=== PATIENT | male | born 1955 | race Caucasian/White ===

== ENCOUNTER 2019-08-07 00:11 | Emergency (ER) | payer BC, SELFPAY ==
[2019-08-07 00:11] VITALS: BMI 30.8
--- NOTE | 2019-08-07 00:14 | ED_ITS ---
Entered by Marilu Barksdale, acting as scribe for Michael Mast MD HPI - General Adult General: Chief complaint: General Medical Stated complaint: Hypertension Time Seen by Provider: 08/07/19 00:13 Source: patient and EMS Mode of arrival: EMS History of Present Illness: HPI narrative: 64 y/o male presents to the ED with HTN. Pt states he woke up an hour ago feeling dizzy and having blurred vision. Pt states his symptoms are somewhat improved upon arrival at [facility]. complaint: HTN/dizziness Onset (ago): hour(s) (1) Severity: mild Associated symptoms: Deny chest pain, dyspnea, headache(s), nausea, rash or vomiting Review of Systems Const: Denies: fever, chills, body aches or change in appetite Eyes: Reports: blurry vision; Denies: eye discomfort ENMT: Denies: throat pain or dental pain Card: Reports: other (elevated BP); Denies: chest pain Resp: Denies: shortness of breath GI: Denies: abdominal pain, nausea, vomiting or diarrhea : Denies: painful urination Musc: Denies: neck pain or back pain Skin/Breast: Denies: rash Neuro: Reports: dizziness; Denies: headache Psych: Denies: depression Edmundo/Lymph: Denies: easy bruising All/Imm: Denies: hives PFSH ED PFSH: Statuses (acute, chronic, etc) shown below reflect problem list status as previously entered and may not be historically accurate Social History Smoking and tobacco status: former smoker Physical Exam Const: COMMON NORMALS: no apparent distress, oriented x3 and healthy appearing HENMT: COMMON NORMALS: normocephalic and head/scalp atraumatic HEAD & SCALP: normocephalic and atraumatic Eye: COMMON NORMALS: PERRL and EOMs intact bilaterally PUPIL: Yes PERRL Neck/C-Spine: COMMON NORMALS: full ROM and supple Chest: COMMONS NORMALS: inspection of chest normal and palpation of chest normal Resp: COMMON NORMALS: normal respiratory effort, no retractions, no use of accessory muscles and clear to auscultation bilaterally AUSCULTATION: clear to auscultation bilaterally Cardio: COMMON NORMALS: regular rate, regular rhythm and no murmurs RATE: regular rate RHYTHM: regular rhythm GI: COMMON NORMALS: normal to inspection, nondistended, normoactive bowel sounds, soft to palpation, non-tender and no masses PALPATION: Yes soft Extremity: COMMON NORMALS: normal to inspection and full ROM Neuro: COMMON NORMALS: oriented x3, moves all extremities and no focal motor deficits Psych: COMMON NORMALS: mental status grossly normal, thought process normal and cooperative THOUGHT PROCESS: normal thought process Skin: COMMON NORMALS: no rashes or lesions noted and no wounds GENERAL SKIN EXAM: no rashes or lesions noted Course Vital Signs: Vital signs: Vital Signs Temperature 98.6 F 08/07/19 00:18 Pulse Rate 85 08/07/19 02:09 Respiratory Rate 18 08/07/19 02:09 Blood Pressure 168/98 08/07/19 02:09 Pulse Oximetry 95 08/07/19 02:09 MDM - General Adult MDM Narrative: Medical decision making narrative: Patient presents here with high blood pressure likely causing his dizziness. Patient has no signs of a stroke exam here is benign. Patient CT head is normal. Patient blood pressures improved and will increase his lisinopril. Patient is stable for discharge and is to follow-up with his primary care doctor in 3 to 5 days and return if worsening. Lab Data: Labs: Lab Results 08/07/19 08/07/19 Range/Units 00:25 00:25 WBC 6.7 (4.0-10.0) 10^3/ uL RBC 4.76 (4.1-5.3) 10^6/u L Hgb 12.2 (11.7-16.6) g/dL Hct 37.3 L (42.0-52.0) % MCV 78.4 L (80-94) fL MCH 25.6 L (28.0-34.0) pg MCHC 32.7 (30.0-36.0) g/dL RDW 13.3 (12.1-15.1) % Plt Count 254 (130-400) 10^3/c mm MPV 10.1 (7.4-10.4) fL Neut % (Auto) 62.0 % Lymph % (Auto) 25.1 % [place] % (Auto) 9.6 % Eos % (Auto) 2.6 % Baso % (Auto) 0.5 % Neut # (Auto) 4.1 (1.8-7.7) 10^3/u L Lymph # (Auto) 1.7 (0.8-4.8) 10^3/u L [place] # (Auto) 0.6 (0.2-0.9) 10^3/u L Eos # (Auto) 0.2 (0.0-0.8) 10^3/u L Baso # (Auto) 0.0 (0.0-0.1) 10^3/u L Nucleated RBC % (a uto) 0 % Nucleated RBCs # 0.0 /100WBC Sodium 138 (136-145) mmol/L Potassium 4.6 (3.5-5.1) mmol/L Chloride 100 (98-107) mmol/L Carbon Dioxide 25 (22-29) mmol/L Anion Gap 17.6 (5-19) BUN 24 H (8-23) mg/dL Creatinine 1.0 (0.7-1.2) mg/dL GFR Calculation 75.2 L (90-130) mL/min Glucose 157 H (74-106) mg/dL Calcium 9.9 (8.5-10.5) mg/dL Total Bilirubin 0.2 (0.15-1.2) mg/dL AST 23 (0-40) U/L ALT 18 (0-41) U/L Alkaline Phosphata se 61 (40-130) IU/L Total Protein 7.5 (6.6-8.7) g/dL Albumin 4.0 (3.5-5.2) g/dL Globulin 3.5 (1.3-4.6) g/dL Imaging Data^: CT Head: Radiologist's impression: Ordering Provider/Ordering MD: Michael Mast MD Date of Service: 08/07/19 Procedure(s): CT head wo con* [id number] Accession Number(s): [id number] Report Number: [id number] PROCEDURE INFORMATION: Exam: CT Head Without Contrast Exam date and time: 08/07/2019 12:27 AM Age: 64 years old Clinical indication: Dizziness TECHNIQUE: Imaging protocol: Computed tomography of the head without contrast. Total DLP: 1309.19 mGy-cm Radiation optimization: All CT scans at this facility use at least one of these dose optimization techniques: automated exposure control; mA and/or kV adjustment per patient size (includes targeted exams where dose is matched to clinical indication); or iterative reconstruction. COMPARISON: No relevant prior studies available. FINDINGS: Brain: The brain is unremarkable. There is no mass effect or significant white matter disease. There is no acute intracranial hemorrhage. Ventricles: There is no significant ventricular dilation. The basal cisterns are unremarkable. Bones/joints: The calvarium is intact. Sinuses: The paranasal sinuses are clear. Mastoid air cells: Left mastoid effusion. No fluid in the left middle ear. Soft tissues: The visible extracranial soft tissues are unremarkable. CT/CT head wo con* [id number] IMPRESSION: 1. No acute intracranial abnormality. 2. Left mastoid effusion. EKG Data^: EKG 1: Computer generated interpretation: Head CT 08/07/19 00:18 IMPRESSION: 1. No acute intracranial abnormality. 2. Left mastoid effusion. Radiation Dose CTDIVOL = (mGy): DLP = 1309.19 (mGy-cm) Discharge Plan Discharge Patient Disposition: Home, Self-Care Clinical Impression: Hypertension Qualifiers: Hypertension type: essential hypertension Qualified Code(s): I10 - Essential (primary) hypertension Condition: Stable Prescriptions: New lisinopril 20 mg tablet 20 mg PO DAILY Qty: 30 RF: 0 Discharge Orders: Discharge Order (Routine); Ordered 08/07/19 Ordered By: Michael Mast Discharge Diet: Advance as tolerated Discharge Activity: Resume usual activity Patient Instructions: Hypertension (ED) Discharge Date/Time: 08/07/19 02:12 Coding Level of Care Code ED Senior Oracle Database Administrator for Chg Fwd Exam Problem Focused The documentation recorded by the Shamir eisenberg Ashley, accurately reflects the service I personally performed and the decisions made by Kezia arroyo Korby, MD Aug 07, 2019 00:11
[2019-08-07 00:18] VITALS: BP 250/130; PULSE 107; RESP 18; TEMP 37; O2SAT 96
--- NOTE | 2019-08-07 00:18 | CTR_ITS ---
PROCEDURE INFORMATION: Exam: CT Head Without Contrast Exam date and time: 08/07/2019 12:27 AM Age: 64 years old Clinical indication: Dizziness TECHNIQUE: Imaging protocol: Computed tomography of the head without contrast. Total DLP: 1309.19 mGy-cm Radiation optimization: All CT scans at this facility use at least one of these dose optimization techniques: automated exposure control; mA and/or kV adjustment per patient size (includes targeted exams where dose is matched to clinical indication); or iterative reconstruction. COMPARISON: No relevant prior studies available. FINDINGS: Brain: The brain is unremarkable. There is no mass effect or significant white matter disease. There is no acute intracranial hemorrhage. Ventricles: There is no significant ventricular dilation. The basal cisterns are unremarkable. Bones/joints: The calvarium is intact. Sinuses: The paranasal sinuses are clear. Mastoid air cells: Left mastoid effusion. No fluid in the left middle ear. Soft tissues: The visible extracranial soft tissues are unremarkable. CT/CT head wo con* [id number] IMPRESSION: 1. No acute intracranial abnormality. 2. Left mastoid effusion. Radiation Dose CTDIVOL = (mGy): DLP = 1309.19 (mGy-cm)
--- NOTE | 2019-08-07 00:19 | ECG_ITS ---
Measurements Intervals [place] Rate: 104 P: 39 VT: 187 QRS: 37 QRSD: 109 T: 31 QT: 334 QTc: 440 SINUS TACHYCARDIA ABNORMAL RHYTHM ECG No previous ECG available for comparison Electronically Signed On 08-07-2019 20:13:27 HEEL BLACKER by Emmanuel Inman M.D. [id number]
[2019-08-07 00:30] VITALS: BP 250/132
[2019-08-07 00:33] VITALS: BP 250/132
[2019-08-07] MEDS: cloNIDine 0.1 mg Tablet 0.2 MG PO (00:33)
[2019-08-07 00:35] LABS: Basophils % 0.5 %; Eosinophils # 0.2 10^3/uL (0.0-0.8); Eosinophils % 2.6 %; Hematocrit 37.3 % (42.0-52.0); Hemoglobin 12.2 g/dL (11.7-16.6); Lymphocytes # 1.7 10^3/uL (0.8-4.8); Lymphocytes % 25.1 %; Mean Corpuscular HGB Conc 32.7 g/dL (30.0-36.0); Mean Corpuscular Hemoglobin 25.6 pg (28.0-34.0); Mean Corpuscular Volume 78.4 fL (80-94); Mean Platelet Volume 10.1 fL (7.4-10.4); Monocytes # 0.6 10^3/uL (0.2-0.9); Monocytes % 9.6 %; Neutrophils # 4.1 10^3/uL (1.8-7.7); Nucleated Red Blood Cells % 0 %; Platelet Count 254 10^3/cmm (130-400); Red Blood Count 4.76 10^6/uL (4.1-5.3); Red Cell Distribution Width 13.3 % (12.1-15.1); White Blood Count 6.7 10^3/uL (4.0-10.0)
[2019-08-07 01:05] LABS: Alanine Aminotransferase 18 U/L (0-41); Alkaline Phosphatase 61 IU/L (40-130); Anion Gap 17.6 (5-19); Aspartate Amino Transferase 23 U/L (0-40); Blood Urea Nitrogen 24 mg/dL (8-23); Calcium 9.9 mg/dL (8.5-10.5); Carbon Dioxide 25 mmol/L (22-29); Chloride 100 mmol/L (98-107); Globulin 3.5 g/dL (1.3-4.6); Glomerular Filtration Rate 75.2 mL/min (90-130); Glucose 157 mg/dL (74-106); Potassium 4.6 mmol/L (3.5-5.1); Sodium 138 mmol/L (136-145); Total Bilirubin 0.2 mg/dL (0.15-1.2); Total Protein 7.5 g/dL (6.6-8.7)
[2019-08-07 01:39] VITALS: BP 198/112; O2SAT 96
[2019-08-07] MEDS: hyDRALAzine 20 mg/mL INJ 1 mL 10 MG IVP (01:39)
[2019-08-07 01:59] VITALS: BP 168/96; PULSE 95; RESP 18; O2SAT 95
[2019-08-07 02:09] VITALS: BP 168/98; PULSE 85; RESP 18; O2SAT 95
== END 2019-08-07 02:12 | disposition home or self-care (01) ==
PROVIDERS: Emergency Provider Emergency Medicine
DX: I10 Essential (primary) hypertension (principal); Z87.891 Personal history of nicotine dependence
CPT/HCPCS: 36415; 70450; 80053; 85025; 93005; 96374; 99282; 99284; J0360

== ENCOUNTER 2019-08-30 12:40 | Outpatient (CLI) | payer BC, SELFPAY ==
--- NOTE | 2019-08-30 12:45 | USCV_ITS ---
Camron Zuñiga Age: 64 Gender: M : 1955 Exam Date: 08/30/2019 13:04 Ordering Phys: Cristo Cook MD ([email or web address]) Technologist: Arlet Guzman Exam Location: [facility] [place] Indication: STABLE ANGINA BP: / HR: 88 Rhythm: Sinus Technical Quality: Technically difficult study MEASUREMENTS (Male / Female) Normal Values 2D ECHO LV Diastolic Diameter PLAX 4.6 cm 4.2 - 5.9 / 3.9 - 5.3 cm LV Systolic Diameter PLAX 2.7 cm IVS Diastolic Thickness 1.4 cm 0.6 - 1.0 / 0.6 - 0.9 cm IVS Systolic Thickness 2.0 cm LVPW Diastolic Thickness 0.7 cm 0.6 - 1.0 / 0.6 - 0.9 cm LVPW Systolic Thickness 1.6 cm LVOT Diameter 2.0 cm LV Ejection Fraction 2D Teich 72.4 % LV Ejection Fraction MOD 2C 77.7 % LV Ejection Fraction 2C AL 78.0 % LA Diameter 4.2 cm LA Width 2.5 cm LA Height 3.9 cm RA Width 2.6 cm RA Height 3.9 cm M-MODE LV Diastolic Diameter MM 5.7 cm 4.2 - 5.9 / 3.9 - 5.3 cm LV Systolic Diameter MM 3.7 cm LV Ejection Fraction MM Teich 62.8 % IVS Diastolic Thickness MM 0.5 cm 0.6 - 1.0 / 0.6 - 0.9 cm IVS Systolic Thickness MM 0.9 cm LVPW Diastolic Thickness MM 0.6 cm 0.6 - 1.0 / 0.6 - 0.9 cm LVPW Systolic Thickness MM 1.3 cm Aortic Annulus Diameter 3.7 cm LA Ao Ratio MM 1.1 MV E Point Septal Separation 0.4 cm DOPPLER AV Peak Velocity 110.0 cm/s LVOT Peak Velocity 100.0 cm/s AV Area Cont Eq vti 3.3 cm squared AV Area Cont Eq pk 3.0 cm squared MV Peak Velocity 100.0 cm/s MV Area PHT 4.2 cm squared Mitral E to A Ratio 0.8 MV E' Velocity 6.0 cm/s Mitral E to MV E' Ratio 13.7 Mitral E to LV E' Lateral Ratio 12.3 Mitral E to LV E' Septal Ratio 15.5 TR Peak Velocity 79.0 cm/s TR Peak Gradient 2.5 mmHg Right Atrial Pressure 3.0 mmHg Pulmonary Artery Systolic Pressu 5.5 mmHg PV Peak Velocity 103.0 cm/s RV Acceleration Time 0.1 s FINDINGS Left Ventricle Normal left ventricular size and systolic function, EF 80 %. Grade I/IV diastolic dysfunction (abnormal relaxation filling pattern), normal to mildly elevated filling pressures. Right Ventricle The right ventricle is normal in size and function. Right Atrium The right atrium is normal in size. Left Atrium The left atrium is normal in size. Mitral Valve No gross abnormalities noted Aortic Valve Thickened aortic valve. Trace aortic valve regurgitation. Tricuspid Valve Trace tricuspid valve regurgitation. Pulmonic Valve Pulmonic valve not well visualized. Pericardium Normal pericardium without effusion. Aorta Normal ascending aorta dimension. CONCLUSIONS Normal left ventricular size and systolic function, EF 80 %. Grade I/IV diastolic dysfunction (abnormal relaxation filling pattern), normal to mildly elevated filling pressures. Thickened aortic valve. Trace aortic valve regurgitation. Trace tricuspid valve regurgitation. There is no pericardial effusion. There are no intracardiac masses. Technically difficult study because of the poor ultrasonic window. Dr Cristo Cook MD FACC (Electronically Signed) Final Date: 30 August 2019 19:58 S
== END 2019-08-30 12:41 | disposition home or self-care (01) ==
LOC: US 12:58
PROVIDERS: Family Provider Family Medicine; PCP Family Medicine; Visit Provider Internal Medicine Cardiovascular Disease
DX: I20.8 Other forms of angina pectoris (principal); I08.2 Rheumatic disorders of both aortic and tricuspid valves
CPT/HCPCS: 93306

== ENCOUNTER → 2019-09-17 11:09 | Outpatient (BNVA) | payer BC, SELFPAY | PROVIDERS: Family Provider Family Medicine; PCP Family Medicine; Visit Provider Family Medicine | DX: E11.69 Type 2 diabetes mellitus with other specified complication (principal); E78.5 Hyperlipidemia, unspecified; I10 Essential (primary) hypertension | CPT/HCPCS: 80053; 80061; 83036; 85025 ==

== ENCOUNTER → 2020-02-20 13:00 | Outpatient (BNVA) | payer BC, SELFPAY | PROVIDERS: Family Provider Family Medicine; PCP Family Medicine; Visit Provider Family Medicine | DX: I10 Essential (primary) hypertension (principal); E11.9 Type 2 diabetes mellitus without complications; E78.5 Hyperlipidemia, unspecified | CPT/HCPCS: 80053; 80061; 83036; 85025 ==

== ENCOUNTER → 2020-06-03 13:09 | Outpatient (BNVA) | payer BC, MEDICARE, SELFPAY | PROVIDERS: Family Provider Family Medicine; PCP Family Medicine; Visit Provider Nurse Practitioner Family | DX: Z20.828 Contact with and (suspected) exposure to other viral communicable diseases (principal); J06.9 Acute upper respiratory infection, unspecified | CPT/HCPCS: 87635 ==

== ENCOUNTER → 2020-07-25 10:28 | Outpatient (BNVA) | payer MEDICARE, SELFPAY | PROVIDERS: Family Provider Family Medicine; PCP Family Medicine; Visit Provider Nurse Practitioner Family | DX: Z20.822 Contact with and (suspected) exposure to COVID-19 (principal); J02.9 Acute pharyngitis, unspecified | CPT/HCPCS: 87071; 87635; 87880 ==

== ENCOUNTER → 2020-09-02 13:19 | Outpatient (BNVA) | payer MEDICARE, SELFPAY | PROVIDERS: Family Provider Family Medicine; PCP Family Medicine; Visit Provider Family Medicine | DX: I10 Essential (primary) hypertension (principal); E11.9 Type 2 diabetes mellitus without complications | CPT/HCPCS: 80053; 80061; 83036; 84443 ==

== ENCOUNTER → 2020-12-30 10:20 | Outpatient (BNVA) | payer MEDICARE, SELFPAY | PROVIDERS: Family Provider Family Medicine; PCP Family Medicine; Visit Provider Family Medicine | DX: E11.69 Type 2 diabetes mellitus with other specified complication (principal); E78.5 Hyperlipidemia, unspecified; I10 Essential (primary) hypertension; W57.XXXA Bitten or stung by nonvenomous insect and other nonvenomous arthropods, initial encounter | CPT/HCPCS: 80053; 80061; 83036; 84443; 85025; 86618; 86666; 86757 ==

== ENCOUNTER 2021-03-17 19:54 | Emergency (ER) | payer MEDICARE, SELFPAY ==
[2021-03-17] VITALS (9 sets, daily range): BP systolic 150–191; BP diastolic 86–103; PULSE 98–120; RESP 15–19; TEMP 36.8; O2SAT 96–100; BMI 27.2
--- NOTE | 2021-03-17 20:05 | ED_ITS ---
HPI - Dizziness General: Chief Complaint: Dizziness Stated Complaint: Blood Pressure High\Dizzy\Shakey Time Seen by Provider: 03/17/21 20:04 History of Present Illness: HPI Narrative: Mr. Francis is a 65-year-old gentleman with history of hypertension, hyperlipidemia, and diabetes on oral agents who presents emerged department due to headache and generalized malaise. He reports being at his baseline health and worked outside in the yard yesterday. He did some more work outside today and around 1:00 pm came inside. He had fairly sudden onset headache associated with generalized malaise, lightheadedness, and chills. He noted his blood pressure to be elevated. He denies other focal infectious symptoms but just generally feels unwell. He has a history of diabetes that involves some visual changes however these have not acutely worsened. He does feel mildly off balance with gait. He denies sick contacts. He has been vaccinated against COVID-19. No other specific exacerbating, alleviating, or provoking factors. Review of Systems General: Reports: 10 or more systems reviewed and unremarkable except in HPI and below Narrative: CONSTITUTIONAL: See HPI EYES - denies pain, denies loss of vision EARS - denies ear issues. NOSE - denies congestion or rhinorrhea. THROAT - denies sore throat or difficulty swallowing. CARDIOVASCULAR - denies chest pain and palpitations RESPIRATORY - denies shortness of breath and cough GASTROINTESTINAL - denies abdominal pain, no nausea vomiting, no changes in b owel habits GENITOURINARY - denies dysuria or urinary frequency MUSCULOSKELETAL- denies deformity or pain SKIN - denies rashes or new changed skin lesions NEUROLOGIC - denies focal weakness or sensory changes. Headache as noted in HPI HEMATOLOGIC/LYMPHATIC - denies easy bruising or lymphadenopathy. [facility] ED PFS: Medical History (Updated 03/17/21 @ 23:28 by Iban Mendoza MD) Benign essential HTN Dyslipidemia associated with type 2 diabetes mellitus Macular degeneration Smoking quit in 1993, smoked for 30 years Stable angina Type 2 diabetes mellitus Surgical History Previous back surgery Social History Smoking and tobacco status: former smoker Quit status (tobacco): has quit using tobacco Year quit tobacco: 2001 Second hand smoke exposure: No Alcohol intake: never Lives independently: Yes Household members: spouse Housing: House Marital status: Current occupational status: employed History of recent travel: No Current gender identity: Male Physical Exam Narrative: EXAM NARRATIVE: GENERAL/CONSTITUTIONAL - well-appearing. No acute distress. Eyes - PERRL, no conjunctival injection ENMT - Atraumatic external nose and ears. Moist mucous membranes NECK - supple. trachea midline CARDIOVASCULAR - regular rate and rhythm. Peripheral pulses 2+ and equal RESPIRATORY -clear to auscultation bilaterally. No retractions or accessory muscle use. ABDOMEN/GI - Nontender, Nondistended. No tenderness to percussion or evidence of peritonitis MSK - Extremities without obvious deformity or tenderness to palpation SKIN - Warm, Dry NEURO - alert and appropriately oriented. Cranial nerve II through XII intact. Strength and sensation intact. Moves all extremities equally. Gait and coordination normal PSYCH - Appropriate mood and affect Course ED course: - Patient was seen and evaluated by me at bedside - Patient placed on cardiac monitors, IV access obtained - Initial evaluation notable for no acute distress, nontoxic appearance. No focal neurologic deficits appreciated on clinical exam -Symptom treatment ordered - Labs notable for no acute abnormality to explain patient's symptoms, no evidence of endorgan dysfunction. - Imaging notable for negative head CT - Upon serial reexamination after treatment the patient was improved - Based on patient history, evaluation, labs, and imaging as interpreted the most likely cause of the patient's condition is unclear though does not require hospitalization at this time - The results of ED evaluation were discussed with the patient including prescriptions and/or symptomatic cares (if applicable) including appropriate and responsible use, followup plan, and return precautions. The patient verbalized understanding and felt safe for discharge. - Patient discharged in satisfactory condition. Vital Signs: Vital signs: Vital Signs Temperature 98.2 F 03/17/21 19:58 Pulse Rate 98 03/17/21 23:37 Respiratory Rate 18 03/17/21 23:37 Blood Pressure 150/86 03/17/21 23:37 Pulse Oximetry 99 03/17/21 23:37 MDM - Dizziness Medical Records: Attestation: I reviewed the patient's medical records. Lab Data: Attestation: I reviewed the patient's lab results. Labs: Lab Results 03/17/21 03/17/21 03/17/21 Range/Units 20:39 20:40 20:40 WBC 5.9 (4.0-10.0) 10^3/ uL RBC 4.43 (4.1-5.3) 10^6/u L Hgb 11.5 L (11.7-16.6) g/dL Hct 35.8 L (42.0-52.0) % MCV 80.8 (80-94) fl MCH 26.0 L (28.0-34.0) pg MCHC 32.1 (30.0-36.0) g/dL RDW 13.9 (12.1-15.1) % Plt Count 271 (130-400) 10^3/c mm MPV 10.0 (7.4-10.4) fL Neut % (Auto) 66.4 % Lymph % (Auto) 23.4 % [place] % (Auto) 8.0 % Eos % (Auto) 1.5 % Baso % (Auto) 0.5 % Neut # (Auto) 3.89 (1.8-7.7) 10^3/u L Lymph # (Auto) 1.4 (0.8-4.8) 10^3/u L [place] # (Auto) 0.5 (0.2-0.9) 10^3/u L Eos # (Auto) 0.1 (0.0-0.8) 10^3/u L Baso # (Auto) 0.0 (0.0-0.1) 10^3/u L Nucleated RBC % (a uto) 0 % Nucleated RBCs # 0.0 /100WBC Sodium 138 (136-145) mmol/L Potassium 4.5 (3.5-5.1) mmol/L Chloride 102 (98-107) mmol/L Carbon Dioxide 24 (22-29) mmol/L Anion Gap 16.5 (5-19) BUN 20 (8-23) mg/dL Creatinine 0.6 L (0.7-1.2) mg/dL GFR Calculation 135.2 H (90-130) mL/min Glucose 97 (65-115) mg/dL POC Glucose 104 (70-110) mg/dL Calculated Osmolal ity 289 (285-295) mOsm/k g Calcium 9.1 (8.5-10.5) mg/dL Total Bilirubin 0.2 (0.15-1.2) mg/dL AST 21 (0-40) U/L ALT 14 (0-41) U/L Alkaline Phosphata se 57 (40-130) IU/L Troponin T Baselin e (0-15) ng/L Troponin T 120 Min [place] (0-15) ng/L Delta Troponin T (0-10) ABS# Total Protein 7.1 (6.6-8.7) g/dL Albumin 4.4 (3.5-5.2) g/dL Globulin 2.7 (1.3-4.6) g/dL TSH 3.03 (0.27-4.20) uIU/ mL 03/17/21 03/17/21 Range/Units 20:40 22:42 WBC (4.0-10.0) 10^3/ uL RBC (4.1-5.3) 10^6/u L Hgb (11.7-16.6) g/dL Hct (42.0-52.0) % MCV (80-94) fl MCH (28.0-34.0) pg MCHC (30.0-36.0) g/dL RDW (12.1-15.1) % Plt Count (130-400) 10^3/c mm MPV (7.4-10.4) fL Neut % (Auto) % Lymph % (Auto) % [place] % (Auto) % Eos % (Auto) % Baso % (Auto) % Neut # (Auto) (1.8-7.7) 10^3/u L Lymph # (Auto) (0.8-4.8) 10^3/u L [place] # (Auto) (0.2-0.9) 10^3/u L Eos # (Auto) (0.0-0.8) 10^3/u L Baso # (Auto) (0.0-0.1) 10^3/u L Nucleated RBC % (a uto) % Nucleated RBCs # /100WBC Sodium (136-145) mmol/L Potassium (3.5-5.1) mmol/L Chloride (98-107) mmol/L Carbon Dioxide (22-29) mmol/L Anion Gap (5-19) BUN (8-23) mg/dL Creatinine (0.7-1.2) mg/dL GFR Calculation (90-130) mL/min Glucose (65-115) mg/dL POC Glucose (70-110) mg/dL Calculated Osmolal ity (285-295) mOsm/k g Calcium (8.5-10.5) mg/dL Total Bilirubin (0.15-1.2) mg/dL AST (0-40) U/L ALT (0-41) U/L Alkaline Phosphata se (40-130) IU/L Troponin T Baselin e 19 H (0-15) ng/L Troponin T 120 Min [place] 19.45 H (0-15) ng/L Delta Troponin T 0.45 (0-10) ABS# Total Protein (6.6-8.7) g/dL Albumin (3.5-5.2) g/dL Globulin (1.3-4.6) g/dL TSH (0.27-4.20) uIU/ mL EKG Data^: EKG 1: Attestation: I personally reviewed and interpreted this EKG as follows: EKG interpretation date: 03/17/21 EKG interpretation time: 20:28 Prior EKG tracings: available for review Interpretation: Twelve-lead EKG shows a regular sinus rhythm at a rate of 98. ME interval 200, QRS duration 104, QTc 442. Normal axis. Interpretation: Sinus rhythm, nonspecific ST segment abnormalities, wandering baseline limits interpretation mildly. EKG 2: Attestation: I personally reviewed and interpreted this EKG as follows: EKG interpretation date: 03/17/21 EKG interpretation time: 22:00 Prior EKG tracings: available for review Interpretation: Twelve-lead EKG shows a regular sinus rhythm at a rate of 95. ME interval 192, QRS duration 105, QTc 447. Normal axis. Interpretation: Sinus rhythm, occasional PVC. Discharge Plan Discharge Patient Disposition: Home Clinical Impression: Dizziness, Hypertension, Malaise Condition: Stable Prescriptions: No Action amlodipine 5 mg tablet 5 mg PO BID Qty: 60 RF: 3 metformin 850 mg tablet 850 mg PO BID Qty: 60 RF: 4 Januvia 100 mg tablet 100 mg PO DAILY Qty: 30 RF: 4 hydrochlorothiazide 12.5 mg tablet 12.5 mg PO DAILY Qty: 30 RF: 4 Discharge Orders: Discharge ED (Routine); Ordered 03/17/21 Ordered By: Iban Mendoza Referrals: Marcelle Lim MD [Primary Care Provider] - Discharge Diet: Usual diet Discharge Activity: Resume usual activity Patient Instructions: Hypertension (ED), Dizziness (ED) Activity Restrictions/Additional Instructions: Thank you for visiting the emergency department. You were seen and evaluated for dizziness. The exact cause of your symptoms is somewhat unclear. There is no evidence of endorgan dysfunction on the laboratory studies and your CT head was normal. Please follow-up with your primary care provider. Please return to the emergency department for anything that you are concerned about and feel needs emergency department evaluation or as discussed. Coding Level of Care Code ED Oncology Nurse Navigator for Yovanny Torres
--- NOTE | 2021-03-17 20:12 | XRR_ITS ---
PROCEDURE INFORMATION: Exam: XR Chest Exam date and time: 03/17/2021 8:12 PM Age: 65 years old Clinical indication: Other: Chills/tachycardia; Additional info: Tachycardia, chills TECHNIQUE: Imaging protocol: XR of the chest. Views: 1 view. COMPARISON: CR Shoulder 2+ views LEFT* [id number] 10/10/2014 3:25 PM FINDINGS: Lungs: Unremarkable. No consolidation. Pleural spaces: Unremarkable. No pleural effusion. No pneumothorax. Heart/Mediastinum: Unremarkable. No cardiomegaly. Bones/joints: Unremarkable. XR/XR chest 1V portable [id number] IMPRESSION: No acute findings.
--- NOTE | 2021-03-17 20:12 | CTR_ITS ---
PROCEDURE INFORMATION: Exam: CT Head Without Contrast Exam date and time: 03/17/2021 8:12 PM Age: 65 years old Clinical indication: Other: Elevated BP; Additional info: H/a, off balance TECHNIQUE: Imaging protocol: Computed tomography of the head without contrast. Radiation optimization: All CT scans at this facility use at least one of these dose optimization techniques: automated exposure control; mA and/or kV adjustment per patient size (includes targeted exams where dose is matched to clinical indication); or iterative reconstruction. COMPARISON: CT head wo con* [id number] 08/07/2019 12:56 AM RADIATION DOSE METRICS: Total DLP (mGy-cm): 1042.08 FINDINGS: Brain: There is moderate cerebral atrophy. No hemorrhage. Unremarkable white matter. No mass effect. Cerebral ventricles: No ventriculomegaly. Paranasal sinuses: Visualized sinuses are unremarkable. No fluid levels. Mastoid air cells: Visualized mastoid air cells are well aerated. Bones/joints: Unremarkable. No acute fracture. Soft tissues: Unremarkable. CT/CT head wo con* [id number] IMPRESSION: No acute intracranial abnormality. Radiation Dose CTDIVOL = (mGy): DLP = 1042.08 (mGy-cm)
--- NOTE | 2021-03-17 20:14 | ECG_ITS ---
[facility] Test Date: 2021-03-17 Pat Name: Camron Zuñiga Department: Room: Gender: Male Certified Tower Climber: : 1955 Requested By: Iban Mendoza Order Number: [id number] Chan MD: Cristo Cook M.D. Measurements Intervals [place] Rate: 98 P: 51 [place]: 200 QRS: 35 QRSD: 104 T: -27 QT: 346 QTc: 442 Interpretive Statements Possible SINUS RHYTHM MODERATE ST DEPRESSION [0.05+ mV ST DEPRESSION] ABNORMAL QRS-T ANGLE [QRS-T AXIS DIFFERENCE > 60] Compared to ECG 08/07/2019 00:26:38 ST (T wave) deviation now present Sinus tachycardia no longer present Baseline artifact, need to repeat the study Electronically Signed On 03-17-2021 23:27:22 CDT by Cristo Cook M.D. [id number]
[2021-03-17] MEDS: sodium chloride 0.9% 1,000 ML 999 ML IV (20:20)
[2021-03-17 20:47] LABS: Glucose Point of Care 104 mg/dL (70-110)
[2021-03-17 20:49] LABS: Basophils % 0.5 %; Eosinophils # 0.1 10^3/uL (0.0-0.8); Eosinophils % 1.5 %; Hematocrit 35.8 % (42.0-52.0); Hemoglobin 11.5 g/dL (11.7-16.6); Lymphocytes # 1.4 10^3/uL (0.8-4.8); Lymphocytes % 23.4 %; Mean Corpuscular HGB Conc 32.1 g/dL (30.0-36.0); Mean Corpuscular Volume 80.8 fl (80-94); Monocytes # 0.5 10^3/uL (0.2-0.9); Neutrophils # 3.89 10^3/uL (1.8-7.7); Neutrophils % 66.4 %; Nucleated Red Blood Cells % 0 %; Platelet Count 271 10^3/cmm (130-400); Red Blood Count 4.43 10^6/uL (4.1-5.3); Red Cell Distribution Width 13.9 % (12.1-15.1); White Blood Count 5.9 10^3/uL (4.0-10.0)
[2021-03-17 21:11] LABS: Troponin(5th) Baseline 19 ng/L (0-15)
[2021-03-17 21:27] LABS: Alanine Aminotransferase 14 U/L (0-41); Albumin Level 4.4 g/dL (3.5-5.2); Alkaline Phosphatase 57 IU/L (40-130); Aspartate Amino Transferase 21 U/L (0-40); Blood Urea Nitrogen 20 mg/dL (8-23); Calcium 9.1 mg/dL (8.5-10.5); Carbon Dioxide 24 mmol/L (22-29); Chloride 102 mmol/L (98-107); Globulin 2.7 g/dL (1.3-4.6); Glomerular Filtration Rate 135.2 mL/min (90-130); Glucose 97 mg/dL (65-115); Osmolality Calculated 289 mOsm/kg (285-295); Sodium 138 mmol/L (136-145); Thyroid Stimulating Hormone 3.03 uIU/mL (0.27-4.20); Total Bilirubin 0.2 mg/dL (0.15-1.2); Total Protein 7.1 g/dL (6.6-8.7)
[2021-03-17 21:28] LABS: Anion Gap 16.5 (5-19); Potassium 4.5 mmol/L (3.5-5.1)
[2021-03-17] MEDS: amlodipine 5 mg Tablet PO (21:44)
--- NOTE | 2021-03-17 22:14 | ECG_ITS ---
[facility] Test Date: 2021-03-17 Pat Name: Camron Zuñiga Department: Room: Gender: Male Film Recordist: : 1955 Requested By: Iban Mendoza Order Number: [id number] Chan MD: Cristo Cook M.D. Measurements Intervals [place] Rate: 95 P: 39 [place]: 192 QRS: 32 QRSD: 105 T: 56 QT: 355 QTc: 447 Interpretive Statements SINUS RHYTHM WITH OCCASIONAL VENTRICULAR PREMATURE COMPLEXES Compared to ECG 03/17/2021 20:21:14 Ventricular premature complex(es) now present ST (T wave) deviation no longer present Electronically Signed On 03-17-2021 23:53:44 CDT by Cristo Cook M.D. [id number]
[2021-03-17 23:15] LABS: Troponin 5 2HR 19.45 ng/L (0-15); Troponin 5 2HR Delta 0.45 ABS# (0-10)
== END 2021-03-17 23:38 | disposition home or self-care (01) ==
PROVIDERS: Emergency Provider Emergency Medicine; PCP Family Medicine
DX: I10 Essential (primary) hypertension (principal); R42 Dizziness and giddiness; R53.81 Other malaise; Z79.84 Long term (current) use of oral hypoglycemic drugs; E11.9 Type 2 diabetes mellitus without complications; E78.5 Hyperlipidemia, unspecified; H35.30 Unspecified macular degeneration; Z87.891 Personal history of nicotine dependence
CPT/HCPCS: 36415; 36416; 70450; 71045; 80053; 82962; 84443; 84484; 85025; 93005; 96360; 99284; J7030

== ENCOUNTER → 2021-09-22 08:50 | Outpatient (BNVA) | payer MEDICARE, SELFPAY | PROVIDERS: PCP Family Medicine; Visit Provider Family Medicine | DX: E11.69 Type 2 diabetes mellitus with other specified complication; E78.5 Hyperlipidemia, unspecified; I10 Essential (primary) hypertension | CPT/HCPCS: 80053; 80061; 82043; 83036; 85025 ==

== ENCOUNTER → 2021-09-30 11:02 | Outpatient (BNVA) | payer MEDICARE, SELFPAY | PROVIDERS: PCP Family Medicine; Visit Provider Family Medicine | DX: Z12.5 Encounter for screening for malignant neoplasm of prostate (principal) | CPT/HCPCS: G0103 ==

== ENCOUNTER → 2021-10-08 10:01 | Outpatient (BNVA) | payer MEDICARE, SELFPAY | PROVIDERS: PCP Family Medicine; Visit Provider Surgery | DX: Z12.11 Encounter for screening for malignant neoplasm of colon (principal) ==

== ENCOUNTER 2021-11-18 06:22 | Day surgery (SDC) | payer MEDICARE, SELFPAY ==
[2021-11-16 09:54] VITALS: BMI 27.8
[2021-11-18 06:49] VITALS: BP 177/99; PULSE 93; RESP 18; TEMP 36.3; O2SAT 99
[2021-11-18] MEDS: sodium chloride 0.9% 1,000 ML 30 ML IV (07:05)
--- NOTE | 2021-11-18 07:31 | W.PM.OPSFHP ---
Same Day Surgery H&P Indication for Procedure/HPI DATE OF PROCEDURE: November 18, 2021 CHIEF COMPLAINT/INDICATIONFOR SURGICAL PROCEDURE: Colonoscopy PREOP DIAGNOSIS: diagnostic PLANNED PROCEDURE: Operation Date: 11/18/21 08:00 Proposed Procedures p Colonoscopy 78349/z12.11(Not Applicable) - David Covarrubias MD Medications/Allergies* Home Medications Medication Instructions Recorded Confirmed Type amlodipine 5 mg tablet 5 mg PO BID 11/16/21 11/18/21 History metformin 850 mg tablet 850 mg PO BID 11/16/21 11/18/21 History metoprolol succinate 50 mg 50 mg PO DAILY 11/16/21 11/18/21 History tablet,extended release 24 hr sitagliptin 100 mg tablet (Januvia) 100 mg PO DAILY 11/16/21 11/18/21 History Allergies/Adverse Reactions Allergy/AdvReac Type Severity Reaction Status Date / Time No Known Allergies Allergy Verified 11/16/21 09:51 Current Medications: Generic Name Dose Route Start Last Admin Trade Name Freq PRN Reason Stop Dose Admin Sodium Chloride 1,000 mls @ 30 mls/hr 11/18/21 06:30 11/18/21 07:05 Sodium Chloride 0.9% IV 11/19/21 06:29 30 mls/hr .Q24H TIERA Administration Pertinent History/Comorbid Conditions* Medical History (Updated 09/30/21 @ 10:21 by Marcelle Lim MD) Benign essential HTN Dyslipidemia associated with type 2 diabetes mellitus Macular degeneration Smoking quit in 1993, smoked for 30 years Stable angina Type 2 diabetes mellitus Surgical History (Updated 08/16/19 @ 15:21 by Cristo Cook MD) Previous back surgery Social History Smoking and tobacco status: never smoked Quit status (tobacco): has quit using tobacco Year quit tobacco: 2001 Second hand smoke exposure: No Alcohol intake: never Lives independently: Yes Household members: spouse Housing: House Marital status: Current occupational status: employed History of recent travel: No Current gender identity: Male Pertinent Exam Findings alert, oriented x 3 and regular rate & rhythm Recommendations Surgery/Procedure today Coding Level of Care Code Acute Targeting Acquisition Officer for Yovanny Torres
--- NOTE | 2021-11-18 07:52 | ANES.PREANE2 ---
Pre-Anesthetic Assessment Height/Weight: Height 1.8 m Weight 90.718 kg Temp Pulse Resp BP Pulse Ox 97.3 F L 93 18 177/99 99 11/18/21 06:49 11/18/21 06:49 11/18/21 06:49 11/18/21 06:49 11/18/21 06:49 Preop Diagnosis: diagnostic Operation Date: 11/18/21 08:00 Proposed Procedures p Colonoscopy 55690/z12.11(Not Applicable) - David Covarrubias MD Familial anesthetic complications: None Was Beta Dulce taken within 24 hours: Yes Was Clonidine taken within 24 hours: N/A Last intake: Intake Last Liquid Date 11/17/21 Last Liquid Time 20:00 Last Solid Date 11/16/21 Last Solid Time 18:00 Social Tobacco and No alcohol Exam alert, oriented x 3, clear to auscultation bilaterally and regular rate & rhythm Airway Submandibular: within normal limits Cervical ROM: within normal limits Mallampati: Class II Dentition: chipped CV/HEM Hypertension Metabolic Diabetes Mellitus Anesthetic Plan ASA status: 3 Anesthesia: MAC Medications/Allergies Home Medications Medication Instructions Recorded Confirmed Last Taken Type hydrochlorothiazide 12.5 mg tablet 12.5 mg PO DAILY #30 tab 09/30/21 11/18/21 1 Month Ago Rx ~10/19/21 amlodipine 5 mg tablet 5 mg PO BID 11/16/21 11/18/21 11/17/21 History metformin 850 mg tablet 850 mg PO BID 11/16/21 11/18/21 11/16/21 18:00 History metoprolol succinate 50 mg 50 mg PO DAILY 11/16/21 11/18/21 11/15/21 History tablet,extended release 24 hr sitagliptin 100 mg tablet (Januvia) 100 mg PO DAILY 11/16/21 11/18/21 11/16/21 History Allergies Allergy/AdvReac Type Severity Reaction Status Date / Time No Known Allergies Allergy Verified 11/16/21 09:51 Current Medications Generic Name Dose Route Start Last Admin Trade Name Freq PRN Reason Stop Dose Admin Sodium Chloride 1,000 mls @ 30 mls/hr 11/18/21 06:30 11/18/21 07:05 Sodium Chloride 0.9% IV 11/19/21 06:29 30 mls/hr .Q24H TIERA Administration PFSH Anesthesia Medical History (Updated 09/30/21 @ 10:21 by Marcelle Lim MD) Benign essential HTN Dyslipidemia associated with type 2 diabetes mellitus Macular degeneration Smoking quit in 1993, smoked for 30 years Stable angina Type 2 diabetes mellitus Surgical History Previous back surgery Social History Smoking and tobacco status: never smoked Quit status (tobacco): has quit using tobacco Year quit tobacco: 2001 Second hand smoke exposure: No Alcohol intake: never Lives independently: Yes Household members: spouse Housing: House Marital status: Current occupational status: employed History of recent travel: No Current gender identity: Male Data Anesthesia Cardiac Studies: Echocardiogram Ultrasound 08/30/19
[2021-11-18 08:49] VITALS: BP 122/72; PULSE 95; RESP 18; TEMP 36.3; O2SAT 95
[2021-11-18 08:59] VITALS: BP 120/81; PULSE 73; RESP 18; TEMP 36.1; O2SAT 95
--- NOTE | 2021-11-18 09:23 | ANE.PACU2 ---
Inpatient post-anesthesia follow up: Airway intact: Yes Vital signs: Temperature 97 F Pulse Rate 73 Respiratory Rate 18 Blood Pressure 120/81 Pulse Oximetry 95 Oxygen Delivery Me thod Room Air Oxygen Flow Rate Fraction of Inspir ed Oxygen Hydration adequate: Yes Nausea and vomiting: No Pain level: 1 Mental status: Baseline
== END 2021-11-18 09:21 | disposition home or self-care (01) ==
PROVIDERS: PCP Family Medicine; Visit Provider Surgery
PROC: 0DJD8ZZ Inspection of Lower Intestinal Tract, Via Natural or Artificial Opening Endoscopic (ICD-10-PCS; CPT 45378; principal; 2021-11-18 08:00)
DX: Z12.11 Encounter for screening for malignant neoplasm of colon (principal); I10 Essential (primary) hypertension; E78.5 Hyperlipidemia, unspecified; Z87.891 Personal history of nicotine dependence
CPT/HCPCS: G0121; J2704; J7030

== ENCOUNTER → 2022-01-06 16:12 | Outpatient (BNVA) | payer MEDICARE, SELFPAY | PROVIDERS: PCP Family Medicine; Visit Provider Nurse Practitioner Family | DX: L20.9 Atopic dermatitis, unspecified (principal); W57.XXXA Bitten or stung by nonvenomous insect and other nonvenomous arthropods, initial encounter; Z86.19 Personal history of other infectious and parasitic diseases; R42 Dizziness and giddiness; R21 Rash and other nonspecific skin eruption; M25.50 Pain in unspecified joint; M79.10 Myalgia, unspecified site; R53.83 Other fatigue | CPT/HCPCS: 80053; 86618; 86666; 86757 ==

== ENCOUNTER → 2022-01-07 08:54 | Outpatient (BNVA) | payer MEDICARE, SELFPAY | PROVIDERS: PCP Family Medicine; Visit Provider Nurse Practitioner Family | DX: L20.9 Atopic dermatitis, unspecified (principal); R42 Dizziness and giddiness; R21 Rash and other nonspecific skin eruption; M25.50 Pain in unspecified joint; M79.10 Myalgia, unspecified site; R53.83 Other fatigue; Z86.19 Personal history of other infectious and parasitic diseases; W57.XXXA Bitten or stung by nonvenomous insect and other nonvenomous arthropods, initial encounter | CPT/HCPCS: 85651; 86140; 86200; 86431 ==

== ENCOUNTER → 2022-03-24 11:21 | Outpatient (BNVA) | payer MEDICARE, SELFPAY | PROVIDERS: PCP Family Medicine; Visit Provider Family Medicine | DX: I10 Essential (primary) hypertension (principal); E11.69 Type 2 diabetes mellitus with other specified complication; E78.5 Hyperlipidemia, unspecified; E11.9 Type 2 diabetes mellitus without complications | CPT/HCPCS: 80053; 80061; 83036; 84443; 85025 ==

== ENCOUNTER → 2022-09-10 09:27 | Outpatient (BNVA) | payer MEDICARE, SELFPAY | PROVIDERS: PCP Family Medicine; Visit Provider Family Medicine | DX: E11.69 Type 2 diabetes mellitus with other specified complication (principal); E78.5 Hyperlipidemia, unspecified; I10 Essential (primary) hypertension | CPT/HCPCS: 80053; 80061; 83036; 84443; 85025 ==

== ENCOUNTER → 2022-09-27 08:27 | Outpatient (BNVA) | payer MEDICARE, SELFPAY | PROVIDERS: PCP Family Medicine; Visit Provider Internal Medicine Rheumatology | DX: M05.79 Rheumatoid arthritis with rheumatoid factor of multiple sites without organ or systems involvement (principal); Z79.899 Other long term (current) drug therapy; E11.9 Type 2 diabetes mellitus without complications; Z11.59 Encounter for screening for other viral diseases; Z11.1 Encounter for screening for respiratory tuberculosis | CPT/HCPCS: 72072; 72100; 72202; 73130; 99204 ==

== ENCOUNTER → 2022-11-01 15:07 | Outpatient (BNVA) | payer MEDICARE, SELFPAY | PROVIDERS: PCP Family Medicine; Visit Provider Nurse Practitioner Family | DX: L57.8 Other skin changes due to chronic exposure to nonionizing radiation (principal); L81.4 Other melanin hyperpigmentation; D22.5 Melanocytic nevi of trunk; Z71.89 Other specified counseling; L85.3 Xerosis cutis; L71.8 Other rosacea; L73.8 Other specified follicular disorders | CPT/HCPCS: 99214 ==

== ENCOUNTER → 2022-12-02 12:55 | Outpatient (BNVA) | payer MEDICARE, SELFPAY | PROVIDERS: PCP Family Medicine; Visit Provider Internal Medicine Rheumatology | DX: Z79.899 Other long term (current) drug therapy (principal); M05.79 Rheumatoid arthritis with rheumatoid factor of multiple sites without organ or systems involvement; E11.9 Type 2 diabetes mellitus without complications | CPT/HCPCS: 99214 ==

== ENCOUNTER → 2023-01-11 16:47 | Outpatient (BNVA) | payer MEDICARE, SELFPAY | PROVIDERS: PCP Family Medicine; Visit Provider Family Medicine | DX: S90.819A Abrasion, unspecified foot, initial encounter (principal); L08.9 Local infection of the skin and subcutaneous tissue, unspecified; E11.9 Type 2 diabetes mellitus without complications; I10 Essential (primary) hypertension; X58.XXXA Exposure to other specified factors, initial encounter | CPT/HCPCS: 80053; 80061; 83036; 84443; 85025 ==

== ENCOUNTER → 2023-01-19 15:40 | Outpatient (BNVA) | payer MEDICARE, SELFPAY | PROVIDERS: PCP Family Medicine; Visit Provider Family Medicine | DX: R50.9 Fever, unspecified (principal); L08.9 Local infection of the skin and subcutaneous tissue, unspecified | CPT/HCPCS: 85025; 86618; 86666; 86757; 87400; 87426 ==

== ENCOUNTER → 2023-03-17 13:04 | Outpatient (BNVA) | payer MEDICARE, SELFPAY | PROVIDERS: PCP Family Medicine; Visit Provider Internal Medicine Rheumatology | DX: M05.79 Rheumatoid arthritis with rheumatoid factor of multiple sites without organ or systems involvement (principal); Z79.899 Other long term (current) drug therapy; E11.9 Type 2 diabetes mellitus without complications | CPT/HCPCS: 36415; 80076; 82565; 85025; 86140; 99214 ==

== ENCOUNTER → 2023-05-25 13:08 | Outpatient (BNVA) | payer MEDICARE, SELFPAY | PROVIDERS: PCP Family Medicine; Visit Provider Thoracic Surgery (Cardiothoracic Vascular Surgery) | DX: E11.52 Type 2 diabetes mellitus with diabetic peripheral angiopathy with gangrene (principal); E11.621 Type 2 diabetes mellitus with foot ulcer; L97.512 Non-pressure chronic ulcer of other part of right foot with fat layer exposed | CPT/HCPCS: 11042; 99213 ==

== ENCOUNTER → 2023-06-01 13:06 | Outpatient (BNVA) | payer MEDICARE, SELFPAY | PROVIDERS: PCP Family Medicine; Visit Provider Nurse Practitioner Family | DX: E11.52 Type 2 diabetes mellitus with diabetic peripheral angiopathy with gangrene (principal); E11.621 Type 2 diabetes mellitus with foot ulcer; L97.511 Non-pressure chronic ulcer of other part of right foot limited to breakdown of skin | CPT/HCPCS: 97597 ==

== ENCOUNTER → 2023-06-08 14:05 | Outpatient (BNVA) | payer MEDICARE, SELFPAY | PROVIDERS: PCP Family Medicine; Visit Provider Thoracic Surgery (Cardiothoracic Vascular Surgery) | DX: E11.52 Type 2 diabetes mellitus with diabetic peripheral angiopathy with gangrene (principal); E11.621 Type 2 diabetes mellitus with foot ulcer; L97.511 Non-pressure chronic ulcer of other part of right foot limited to breakdown of skin | CPT/HCPCS: 97597 ==

== ENCOUNTER → 2023-06-15 13:54 | Outpatient (BNVA) | payer MEDICARE, SELFPAY | PROVIDERS: PCP Family Medicine; Visit Provider Thoracic Surgery (Cardiothoracic Vascular Surgery) | DX: E11.52 Type 2 diabetes mellitus with diabetic peripheral angiopathy with gangrene (principal); E11.621 Type 2 diabetes mellitus with foot ulcer; L97.511 Non-pressure chronic ulcer of other part of right foot limited to breakdown of skin | CPT/HCPCS: 11042 ==

== ENCOUNTER → 2023-06-17 09:19 | Outpatient (BNVA) | payer MEDICARE, SELFPAY | PROVIDERS: PCP Family Medicine; Visit Provider Thoracic Surgery (Cardiothoracic Vascular Surgery) | DX: E11.52 Type 2 diabetes mellitus with diabetic peripheral angiopathy with gangrene (principal); E11.621 Type 2 diabetes mellitus with foot ulcer; L97.511 Non-pressure chronic ulcer of other part of right foot limited to breakdown of skin | CPT/HCPCS: 97597; A6212 ×2 ==

== ENCOUNTER → 2023-06-22 13:02 | Outpatient (BNVA) | payer MEDICARE, SELFPAY | PROVIDERS: PCP Family Medicine; Visit Provider Thoracic Surgery (Cardiothoracic Vascular Surgery) | DX: E11.52 Type 2 diabetes mellitus with diabetic peripheral angiopathy with gangrene (principal); E11.621 Type 2 diabetes mellitus with foot ulcer; L97.511 Non-pressure chronic ulcer of other part of right foot limited to breakdown of skin | CPT/HCPCS: 97597; A6210 ==

== ENCOUNTER → 2023-06-29 12:54 | Outpatient (BNVA) | payer MEDICARE, SELFPAY | PROVIDERS: PCP Family Medicine; Visit Provider Nurse Practitioner Family | DX: Z09 Encounter for follow-up examination after completed treatment for conditions other than malignant neoplasm (principal); Z87.2 Personal history of diseases of the skin and subcutaneous tissue | CPT/HCPCS: 99212 ==

== ENCOUNTER → 2023-07-14 13:21 | Outpatient (BNVA) | payer MEDICARE, SELFPAY | PROVIDERS: PCP Family Medicine; Visit Provider Internal Medicine Rheumatology | DX: M05.79 Rheumatoid arthritis with rheumatoid factor of multiple sites without organ or systems involvement (principal); Z79.899 Other long term (current) drug therapy; E11.9 Type 2 diabetes mellitus without complications; M45.8 Ankylosing spondylitis sacral and sacrococcygeal region | CPT/HCPCS: 36415; 80076; 82565; 85025; 86140; 86812; 99214 ==

== ENCOUNTER → 2023-09-05 10:05 | Outpatient (BNVA) | payer MEDICARE, SELFPAY | PROVIDERS: PCP Family Medicine; Visit Provider Family Medicine | DX: Z79.899 Other long term (current) drug therapy (principal); I10 Essential (primary) hypertension; E11.69 Type 2 diabetes mellitus with other specified complication; E78.5 Hyperlipidemia, unspecified; E11.9 Type 2 diabetes mellitus without complications; Z12.5 Encounter for screening for malignant neoplasm of prostate; M79.10 Myalgia, unspecified site | CPT/HCPCS: 80053; 80061; 82306; 83036; 84443; 85025; G0103 ==

== ENCOUNTER → 2023-10-26 09:09 | Outpatient (BNVA) | payer MEDICARE, SELFPAY | PROVIDERS: PCP Family Medicine; Visit Provider Thoracic Surgery (Cardiothoracic Vascular Surgery) | DX: I96 Gangrene, not elsewhere classified (principal); T81.31XD Disruption of external operation (surgical) wound, not elsewhere classified, subsequent encounter; Y83.8 Other surgical procedures as the cause of abnormal reaction of the patient, or of later complication, without mention of misadventure at the time of the procedure | CPT/HCPCS: 11042; 99213 ==

== ENCOUNTER → 2023-10-28 07:52 | Outpatient (BNVA) | payer MEDICARE, SELFPAY | PROVIDERS: PCP Family Medicine; Visit Provider Thoracic Surgery (Cardiothoracic Vascular Surgery) | DX: I96 Gangrene, not elsewhere classified (principal); T81.31XD Disruption of external operation (surgical) wound, not elsewhere classified, subsequent encounter; Y83.8 Other surgical procedures as the cause of abnormal reaction of the patient, or of later complication, without mention of misadventure at the time of the procedure | CPT/HCPCS: 29445 ==

== ENCOUNTER 2023-11-02 11:11 | Outpatient (CLI) | payer MEDICARE, SELFPAY ==
--- NOTE | 2023-11-02 11:15 | XR_ITS ---
WS: [id number] XR foot RT min 3V* [id number] REASON FOR EXAM: R/O osteo FINDINGS: No bone erosion or periosteal reaction. Soft tissue ulcer location not given. There may be a disrupti on of the soft tissues adjacent to the distal head of the fifth metatarsal which may represent the ul ceration. No abnormality of the distal fifth metatarsal or proximal phalanx. Joint space intact. No acute fracture. Old healed fracture of the proximal second metatarsal. Mild osteoarthritis in the DIP and PIP joints of the toes. XR/XR foot RT min 3V* [id number] IMPRESSION: Old healed fracture and changes of osteoarthritis with no findings of osteomyel itis.
== END 2023-11-02 11:12 | disposition home or self-care (01) ==
PROVIDERS: PCP Family Medicine; Visit Provider Thoracic Surgery (Cardiothoracic Vascular Surgery)
DX: L97.412 Non-pressure chronic ulcer of right heel and midfoot with fat layer exposed (principal); M19.071 Primary osteoarthritis, right ankle and foot; Z87.81 Personal history of (healed) traumatic fracture; E11.621 Type 2 diabetes mellitus with foot ulcer
CPT/HCPCS: 11043; 73630; 87070; 87176; 87205; A6197

== ENCOUNTER → 2023-11-09 10:08 | Outpatient (BNVA) | payer MEDICARE, SELFPAY | PROVIDERS: PCP Family Medicine; Visit Provider Thoracic Surgery (Cardiothoracic Vascular Surgery) | DX: I96 Gangrene, not elsewhere classified (principal); T81.31XD Disruption of external operation (surgical) wound, not elsewhere classified, subsequent encounter; Y83.8 Other surgical procedures as the cause of abnormal reaction of the patient, or of later complication, without mention of misadventure at the time of the procedure | CPT/HCPCS: 11042; 87070; 87077; 87176; 87186; 87205; A6197 ==

== ENCOUNTER → 2023-11-16 13:06 | Outpatient (BNVA) | payer MEDICARE, SELFPAY | PROVIDERS: PCP Family Medicine; Visit Provider Thoracic Surgery (Cardiothoracic Vascular Surgery) | DX: I96 Gangrene, not elsewhere classified (principal); T81.31XD Disruption of external operation (surgical) wound, not elsewhere classified, subsequent encounter; Y83.8 Other surgical procedures as the cause of abnormal reaction of the patient, or of later complication, without mention of misadventure at the time of the procedure | CPT/HCPCS: 11042; A6197 ==

== ENCOUNTER → 2023-11-23 13:50 | Outpatient (BNVA) | payer MEDICARE, SELFPAY | PROVIDERS: PCP Family Medicine; Visit Provider Thoracic Surgery (Cardiothoracic Vascular Surgery) | DX: I96 Gangrene, not elsewhere classified (principal); T81.31XD Disruption of external operation (surgical) wound, not elsewhere classified, subsequent encounter; Y83.8 Other surgical procedures as the cause of abnormal reaction of the patient, or of later complication, without mention of misadventure at the time of the procedure | CPT/HCPCS: 97597 ==

== ENCOUNTER → 2023-11-30 14:07 | Outpatient (BNVA) | payer MEDICARE, SELFPAY | PROVIDERS: PCP Family Medicine; Visit Provider Thoracic Surgery (Cardiothoracic Vascular Surgery) | DX: E11.52 Type 2 diabetes mellitus with diabetic peripheral angiopathy with gangrene (principal); E11.621 Type 2 diabetes mellitus with foot ulcer; L97.521 Non-pressure chronic ulcer of other part of left foot limited to breakdown of skin | CPT/HCPCS: 11042 ==

== ENCOUNTER → 2023-12-07 14:53 | Outpatient (BNVA) | payer MEDICARE, SELFPAY | PROVIDERS: PCP Family Medicine; Visit Provider Thoracic Surgery (Cardiothoracic Vascular Surgery) | DX: E11.52 Type 2 diabetes mellitus with diabetic peripheral angiopathy with gangrene (principal); E11.621 Type 2 diabetes mellitus with foot ulcer; L97.411 Non-pressure chronic ulcer of right heel and midfoot limited to breakdown of skin | CPT/HCPCS: 97597 ==

== ENCOUNTER → 2023-12-14 15:36 | Outpatient (BNVA) | payer MEDICARE, SELFPAY | PROVIDERS: PCP Family Medicine; Visit Provider Thoracic Surgery (Cardiothoracic Vascular Surgery) | DX: E11.52 Type 2 diabetes mellitus with diabetic peripheral angiopathy with gangrene (principal); E11.621 Type 2 diabetes mellitus with foot ulcer; L97.511 Non-pressure chronic ulcer of other part of right foot limited to breakdown of skin | CPT/HCPCS: 97597 ==

== ENCOUNTER → 2023-12-21 08:46 | Outpatient (BNVA) | payer MEDICARE, SELFPAY | PROVIDERS: PCP Family Medicine; Visit Provider Thoracic Surgery (Cardiothoracic Vascular Surgery) | DX: E11.621 Type 2 diabetes mellitus with foot ulcer (principal); E11.52 Type 2 diabetes mellitus with diabetic peripheral angiopathy with gangrene; L97.511 Non-pressure chronic ulcer of other part of right foot limited to breakdown of skin | CPT/HCPCS: 11042; 87070; 87075; 87176; 87205 ==

== ENCOUNTER 2023-12-28 12:12 | Outpatient (CLI) | payer MEDICARE, SELFPAY ==
[2023-12-28 13:16] LABS: Basophils % 0.4 %; Eosinophils # 0.1 10^3/uL (0.0-0.8); Eosinophils % 2.4 %; Hematocrit 34.5 % (37-53); Lymphocytes # 1.6 10^3/uL (0.8-4.8); Lymphocytes % 30.6 %; Mean Corpuscular HGB Conc 31.6 g/dL (30-55); Mean Corpuscular Hemoglobin 25.1 pg (27-33); Mean Corpuscular Volume 79.5 fl (82-101); Mean Platelet Volume 9.7 fL (7.4-10.4); Monocytes # 0.5 10^3/uL (0.2-0.9); Monocytes % 9.1 %; Neutrophils # 3.07 10^3/uL (1.8-7.7); Neutrophils % 57.3 %; Nucleated Red Blood Cells % 0 %; Platelet Count 279 10^3/cmm (157-399); Red Blood Count 4.34 10^6/uL (3.85-5.65); Red Cell Distribution Width 14.6 % (12.1-15.1); White Blood Count 5.36 10^3/uL (3.29-11.43)
[2023-12-28 13:36] LABS: Estmated Average Glucose 128; Hemoglobin A1C 6.1 % (4.0-6.0)
[2023-12-28 13:39] LABS: Alanine Aminotransferase 10 U/L (0-41); Albumin Level 3.9 g/dL (3.5-5.2); Alkaline Phosphatase 85 U/L (40-130); Anion Gap 14.6 (5-19); Aspartate Amino Transferase 17 U/L (0-40); Blood Urea Nitrogen 24 mg/dL (8-23); C Reactive Protein 10.1 mg/L (0.0-4.9); Calcium 9.3 mg/dL (8.5-10.5); Carbon Dioxide 24 mmol/L (22-29); Chloride 103 mmol/L (98-107); Glomerular Filtration Rate 60.2 mL/min (90-130); Glucose 87 mg/dL (65-115); Osmolality Calculated 287 mOsm/kg (285-295); Potassium 4.6 mmol/L (3.5-5.1); Sodium 137 mmol/L (136-145); Total Bilirubin 0.4 mg/dL (0.15-1.2); Total Protein 7.9 g/dL (6.6-8.7)
[2023-12-28 13:47] LABS: Prealbumin 22.1 mg/dL (20-40)
== END 2023-12-28 12:13 | disposition home or self-care (01) ==
LOC: LAB 12:16
PROVIDERS: PCP Family Medicine; Visit Provider Thoracic Surgery (Cardiothoracic Vascular Surgery)
DX: E11.621 Type 2 diabetes mellitus with foot ulcer (principal)
CPT/HCPCS: 80053; 83036; 84134; 85025; 86140

== ENCOUNTER 2024-01-04 09:59 | Outpatient (CLI) | payer MEDICARE, SELFPAY ==
--- NOTE | 2024-01-04 10:15 | MRR_ITS ---
PROCEDURE INFORMATION: Exam: MR Right Lower Extremity Other Than Joint Without and With Contrast; Foot Exam date and time: 01/04/2024 10:09 AM Age: 68 years old Clinical indication: Condition or disease; Other: Diabetic ulcer 5th metatarsal; Additional info: R/O osteo TECHNIQUE: Imaging protocol: Magnetic resonance imaging of the right lower extremity without and with contrast. Exam focused on the foot. Contrast material: MULTIHANCE; Contrast volume: 20 ml; Contrast route: INTRAVENOUS (IV); COMPARISON: CR XR foot RT min 3V* [id number] 11/02/2023 11:19 AM FINDINGS: Bones/joints: Moderate enhancing bone marrow edema in the shaft through head of the 5th metatarsal is noted with destructive changes of the 5th metatarsal head. Moderate bone marrow edema throughout the proximal phalanx of the 5th toe is noted and there is moderate dorsal subluxation of the proximal phalanx relative to the 5th metatarsal head. These regions of bone marrow edema characterized by hyperintensity on the fluid sensitive sequences with corresponding T1 hypointensity. A moderate 5th metatarsophalangeal joint effusion is present. A healed fracture of the proximal to mid 2nd metatarsal is present. LIGAMENTS: Lisfranc ligament: Unremarkable. No evidence of tear. TENDONS: Flexor tendons of foot: Unremarkable. No evidence of tear. Tibialis posterior tendon: Unremarkable as visualized. Peroneal tendons: Unremarkable as visualized. Extensor tendons of foot: Unremarkable. No evidence of tear. Tibialis anterior tendon: Unremarkable as visualized. Tarsal canal (Sinus tarsi): Unremarkable. Tarsal tunnel: Unremarkable. Soft tissues: A skin wound along the plantar aspect of the distal 5th metatarsal is present. Contiguous with the skin wound a lobulated circumscribed region of fluid signal intensity containing punctate foci of low signal intensity which may represent gas on series 701, image 15 measures 2.3 x 1.7 x 2.7 cm. This collection appears to communicate with the 5th metatarsophalangeal joint space. A mild degree of diffuse subcutaneous edema is noted. Diffuse mild muscular edema is present. Mild abnormal increased intermetatarsal bursal fluid is noted between the 1st and 2nd, 2nd and 3rd and 3rd and 4th metatarsal heads. Plantar fascia: Unremarkable as visualized. MR/MR foot RT wo/w con [id number] IMPRESSION: 1. Findings are consistent with osteomyelitis of the 5th metatarsal and proximal 5th phalanx. 2. A fluid collection possibly containing small foci of gas is noted contiguous with the plantar skin wound adjacent to the 5th metatarsal head which may represent a draining abscess or seroma. This collection appears to communicate with the 5th metatarsophalangeal joint space and the possibility of septic arthritis cannot be excluded. 3. Mild muscular edema is noted which may be related to strain or myositis. 4. Mild intermetatarsal bursitis between the 1st and 2nd, 2nd and 3rd and 3rd and 4th metatarsal heads. 5. Muscular edema is present which may be related to strain, neuropathic changes or myositis.
[2024-01-04] MEDS: gadobenate dimeglumine 20 mL vial IV (11:11)
== END 2024-01-04 10:00 | disposition home or self-care (01) ==
LOC: RAD 10:00
PROVIDERS: PCP Family Medicine; Visit Provider Thoracic Surgery (Cardiothoracic Vascular Surgery)
DX: E11.621 Type 2 diabetes mellitus with foot ulcer (principal); R22.41 Localized swelling, mass and lump, right lower limb; L97.519 Non-pressure chronic ulcer of other part of right foot with unspecified severity; E11.52 Type 2 diabetes mellitus with diabetic peripheral angiopathy with gangrene; L97.521 Non-pressure chronic ulcer of other part of left foot limited to breakdown of skin
CPT/HCPCS: 73720; 87070; 87176; 87205; 97597; A9577

== ENCOUNTER → 2024-01-11 14:07 | Outpatient (BNVA) | payer MEDICARE, SELFPAY | PROVIDERS: PCP Family Medicine; Visit Provider Thoracic Surgery (Cardiothoracic Vascular Surgery) | DX: E11.52 Type 2 diabetes mellitus with diabetic peripheral angiopathy with gangrene (principal); E11.621 Type 2 diabetes mellitus with foot ulcer; L97.522 Non-pressure chronic ulcer of other part of left foot with fat layer exposed | CPT/HCPCS: 97597 ==

== ENCOUNTER → 2024-01-12 15:04 | Outpatient (BNVA) | payer MEDICARE, SELFPAY | PROVIDERS: PCP Family Medicine; Visit Provider Podiatrist Foot & Ankle Surgery | DX: M86.171 Other acute osteomyelitis, right ankle and foot; L97.514 Non-pressure chronic ulcer of other part of right foot with necrosis of bone; E11.621 Type 2 diabetes mellitus with foot ulcer; Z79.84 Long term (current) use of oral hypoglycemic drugs | CPT/HCPCS: 99204 ==

== ENCOUNTER 2024-01-18 10:15 | Day surgery (SDC) | payer MEDICARE, SELFPAY ==
[2024-01-18 10:43] VITALS: BP 179/98; PULSE 83; RESP 16; TEMP 36.3; O2SAT 99
[2024-01-18] MEDS: sodium chloride 0.9% 1,000 ML 30 ML IV (10:56)
--- NOTE | 2024-01-18 11:39 | ANES.PREANE2 ---
Pre-Anesthetic Assessment Height/Weight: Height 1.8 m Weight 93.44 kg Temp Pulse Resp BP Pulse Ox O2 Del Method 97.3 F L 83 16 179/98 99 Room Air 01/18/24 10:43 01/18/24 10:43 01/18/24 10:43 01/18/24 10:43 01/18/24 10:43 01/18/24 10:43 Preop Diagnosis: Osteomyelitis right foot Operation Date: 01/18/24 12:00 Proposed Procedures p Incision And Drainage Incision of Bone Cortex right fifth metatarsal(Right) - Delgado Davis DPM Familial anesthetic complications: none Was Beta Dulce taken within 24 hours: N/A Was Clonidine taken within 24 hours: N/A Last intake: Intake Last Liquid Date 01/17/24 Last Liquid Time 22:00 Last Solid Date 01/17/24 Last Solid Time 20:00 Social No alcohol and No tobacco Exam alert, oriented x 3, clear to auscultation bilaterally and regular rate & rhythm Airway Submandibular: within normal limits Cervical ROM: within normal limits Mallampati: Class II Dentition: other Comments: Comments: Missing one upper front tooth History/ROS No significant history except as noted and No significant complaints Pulmonary None reported CV/HEM Stable Angina and Hypertension None reported Hepatic None reported GI None reported Metabolic Diabetes Mellitus Musc/skel None reported Neuropsych None reported Anesthetic Plan ASA status: 3 Anesthesia: MAC Risk of > 500 ml blood loss (7ml/kg in children): No Other Pertinent Information Limited sensation in Right foot Medications/Allergies Home Medications Medication Instructions Recorded Confirmed Last Taken Type nystatin-triamcinolone 100,000 1 applic topical TID #60 grams 01/06/22 01/17/24 Unknown Rx unit/gram-0.1 % topical ointment pimecrolimus 1 % topical cream 1 applic topical BID #100 grams 04/16/22 01/17/24 Unknown Rx triamcinolone acetonide 0.1 % 1 applic topical BID #80 grams 04/16/22 01/17/24 Unknown Rx topical ointment blood-glucose meter (Blood Glucose #1 ea 05/07/22 01/12/24 Unknown Rx Monitoring kit) potassium chloride 10 mEq 10 meq PO DAILY #30 caps 06/07/22 01/17/24 Unknown Rx capsule,extended release furosemide 20 mg tablet (Lasix) 20 mg PO QAM #30 tabs 11/12/22 01/17/24 01/17/24 Rx clobetasol 0.05 % topical cream 1 applic topical BID 2 weeks #45 07/14/23 01/17/24 01/17/24 Rx grams etanercept 50 mg/mL (1 mL) 50 mg SUBCUT .Q7days #4 mL 07/14/23 01/17/24 Unknown Rx subcutaneous syringe (Enbrel) prednisone 10 mg tablet See Rx Instructions PO .COMPLEX 07/14/23 01/17/24 Unknown Rx PRN joint pain #30 tabs amlodipine 5 mg tablet 5 mg PO BID #60 tabs 09/09/23 01/17/24 01/17/24 Rx honey 80 % topical gel (MediHoney 1 applic topical BID #44 mL 10/20/23 01/17/24 Unknown Rx (honey)) lancets 31 gauge #100 ea 11/01/23 01/12/24 Unknown Rx blood sugar diagnostic (Accu-Chek #100 ea 01/02/24 01/12/24 Unknown Rx Guide test strips) linezolid 600 mg tablet 600 mg PO BID #28 tabs 01/11/24 01/17/24 01/17/24 Rx metformin 500 mg tablet,extended 500 mg PO BID 01/17/24 01/17/24 01/17/24 History release 24 hr metronidazole 0.75 % topical gel 1 applic topical BID 01/17/24 01/17/24 Unknown History ([place]) sitagliptin phosphate 100 mg 100 mg PO DAILY 01/17/24 01/17/24 01/17/24 History tablet (Januvia) Allergies Allergy/AdvReac Type Severity Reaction Status Date / Time No Known Allergies Allergy Verified 01/17/24 12:46 Current Medications Generic Name Dose Route Start Last Admin Trade Name Freq PRN Reason Stop Dose Admin Sodium Chloride 1,000 mls @ 30 mls/hr 01/18/24 10:30 01/18/24 10:56 Sodium Chloride 0.9% IV 01/19/24 10:29 30 mls/hr .Q24H TIERA Administration PFSH Anesthesia Medical History Ankylosing spondylitis High risk medication use Seropositive rheumatoid arthritis of multiple sites Benign essential HTN Macular degeneration Smoking quit in 1993, smoked for 30 years Dyslipidemia associated with type 2 diabetes mellitus Stable angina Type 2 diabetes mellitus Surgical History Status post colonoscopy (11/18/21) Previous back surgery Family History Other Cancer Diabetes Hypertension Lung disease Rheumatoid arthritis Denies family history of Lupus Chronic kidney disease (CKD) Family history of premature coronary artery disease Stroke Social History Smoking and tobacco/nicotine status: former use of tobacco/nicotine Quit status (tobacco/nicotine): has quit using Year quit tobacco: 2001 Second hand smoke exposure: No Alcohol intake: never Substance/Drug Use: never Caregiver/support person: Yes (spouse) Lives independently: Yes Household members: spouse Housing: House Marital status: Current occupational status: employed Current gender identity: Male Data Anesthesia Cardiac Studies: Echocardiogram Ultrasound 08/30/19
--- NOTE | 2024-01-18 12:00 | W.PM.OPSUD ---
Surgery/Procedure H&P Update DATE OF PROCEDURE: January 18, 2024 DATE H&P PERFORMED: 01/12/24 H&P UPDATE INFORMATION: I have reviewed H&P completed within last 30 days, I have examined patient prior to procedure, No changes to prior documentation and H&P is in [facility] EMR on date indicated PREOP DIAGNOSIS: Osteomyelitis right foot PLANNED PROCEDURE: Operation Date: 01/18/24 12:00 Proposed Procedures p Incision And Drainage Incision of Bone Cortex right fifth metatarsal(Right) - Delgado Davis DPM
[2024-01-18] MEDS: ceFAZolin 2,000 mg SDV 2000 MG IVP (12:05)
[2024-01-18] MEDS: lidocaine 2% INJ 20 mL INJECTION (12:25)
[2024-01-18 12:40] VITALS: BP 184/91; PULSE 81; RESP 18; TEMP 36.2; O2SAT 97
[2024-01-18 12:45] VITALS: BP 178/92; PULSE 79; RESP 18; O2SAT 97
--- NOTE | 2024-01-18 12:47 | W.PM.BPON ---
Date of Procedure: 09/16/23 Surgeon: Delgado Davis DPM Cement Truck Driver(s): Wendy ANDERSON Procedure(s) performed: Incision of bone cortex right foot Findings of the procedure(s): Osteomyelitis right fifth metatarsal head and proximal phalanx base of the fifth toe Estimated blood loss: 5 mL Specimen(s) removed: Fifth metatarsal head sent to microbiology for Gram stain, culture and sensitivity Post-operative diagnosis: Osteomyelitis right foot Local MAC, tourniquet time approximately 12 minutes, No complications with anesthesia or surgery.
--- NOTE | 2024-01-18 12:48 | PM.OP ---
Operative Report Date of procedure: January 18, 2024 Pre-op diagnosis: Osteomyelitis right fifth metatarsal L97.514 Osteomyelitis right fifth toe Post-op diagnosis: Same Post-op findings: Devitalized bone at the head of the right fifth metatarsal and devitalized bone at the base of the proximal phalanx right fifth toe Procedure done: Incision of bone cortex right fifth metatarsal. CPT code 22089 Partial resection of phalanx right fifth toe. CPT code 14537 Implants: 4-0 Vicryl, 4-0 nylon Specimens removed/disposition: Fifth metatarsal head right foot sent to microbiology Surgeon: Delgado Davis DPM Weatherization Director: Wendy Mars Estimated blood loss: 5 approx 12 IV fluids: See intraoperative documentation Urine output: 0 Complications: None Findings: Devitalized bone of the base of the proximal phalanx right fifth toe. Devitalized bone of the head of the right fifth metatarsal. Brief History: Discussed surgical and nonsurgical management of his condition. Surgical management combined with medical management and wound care would be more favorable to maintain the structure of his foot. Discussed options of incision of bone cortex to the right fifth metatarsal head and proximal phalanx base can be done outpatient next week, will require bone culture continue antibiotics and wound care. Patient is agreeable wishes to proceed at next available opportunity. I reviewed at length with the patient, the risks, potential complications, benefits, alternatives, expectations, and typical outcomes associated with the surgery. The risks and potential complications were explained in detail, including but not limited to infection, wound dehiscence or soft tissue complications, bleeding and hematoma, chronic edema, neuritis or nerve damage producing numbness or chronic pain, CRPS, failure to relieve pain or worsening pain, thick / painful / unsightly scar, limited motion / stiffness, malposition, delayed union, malunion, or nonunion, fracture, reaction to implants, anesthetic complications, venous thromboembolism, and deformity recurrence. I discussed the notion of no regrets with the patient as it pertains to complications and outcomes. The patient seemed to understand the nature of the proposed care and required convalescence. They asked appropriate questions, answered to their satisfaction. They are aware no guarantees can be made as to a satisfactory outcome and they understand there may be other possible unforeseen complications or outcomes not listed here that will be treated accordingly if they arise. There were no written or implied guarantees given to the patient. They gave informed consent to proceed. Procedure: Under mild sedation the patient was brought to the operating room and remained on the gurney in supine position. A timeout was performed. Anesthesia was then administered by the anesthesia service. Local anesthesia was injected by myself consisting of 20 cc of one-to-one mixture 1% lidocaine and 0.5% Marcaine plain in a reverse Rodriguez block fashion to the right foot. Well-padded pneumatic tourniquet was applied to the right ankle. The right lower extremity was scrubbed, prepped and draped utilizing normal aseptic technique. No Esmarch bandage was utilized due to underlying infection. The right foot was elevated and ankle tourniquet inflated to 250 mmHg. Attention was directed to the right lateral forefoot where a plantar wound was appreciated corresponding to the head of the fifth metatarsal does probe directly to bone. 8 skin incision was performed over the dorsal lateral aspect of the right fifth metatarsal phalangeal joint full-thickness down to bone. Dissection was carried about the right fifth metatarsal head where incision of bone cortex was performed, the right fifth metatarsal head was excisionally debrided of devitalized bone and a portion of this bone was sent to microbiology for Gram stain, culture and sensitivity, all devitalized bone was debrided followed by irrigation of the incision with copious amounts of sterile saline solution. Of note devitalized bone of the fifth metatarsal head of the right foot was off yellow on dusky beck appearance with decreased density, remaining portion following debridement was viable in color and appropriate density. Attention was directed to the base of the proximal phalanx of the right fifth toe which was noted to have lamination of the articular surface and poor density of metaphyseal bone indicating devitalized bone concerning for underlying infection this was transected of all devitalized bone utilizing a sagittal saw to healthy margins. The incision was irrigated with copious amounts of sterile saline solution, visual and palpable inspection was performed and no further devitalized bone or soft tissue was appreciated intraoperatively. Following further irrigation the incision was closed in a layered fashion with absorbable sutures deep and skin with 4-0 nylon. Plantar wound was left open to heal by secondary intention and allow drainage as needed. The incision was dressed with Adaptic, sterile 4 x 4, Kerlix and Raúl wrap followed by application of a cam boot to the right lower extremity. Tourniquet was deflated and a prompt hyperemic response was noted to all 5 distal digits of the right foot. Patient tolerated the procedure and anesthesia well and was transferred to the PACU with vital signs stable and vascular status intact. Following a period of postoperative monitoring he will be discharged home will continue with oral antibiotics prescribed previously outpatient and he will be contacted should surgical cultures yield further information necessitating a adjustment in his antibiotic regimen. Patient was given at home care instructions and scheduled follow-up.
[2024-01-18 12:50] VITALS: BP 186/95; PULSE 80; RESP 18; O2SAT 96
[2024-01-18 12:58] VITALS: BP 157/91; PULSE 76; RESP 16; TEMP 36.2; O2SAT 97
[2024-01-18 13:14] VITALS: BP 158/91; PULSE 74; RESP 16; O2SAT 98
--- NOTE | 2024-01-18 13:40 | ANE.PACU2 ---
Inpatient post-anesthesia follow up: Airway intact: Yes Vital signs: Temperature 97.2 F Pulse Rate 74 Respiratory Rate 16 Blood Pressure 158/91 Pulse Oximetry 98 Oxygen Delivery Me thod Room Air Oxygen Flow Rate Fraction of Inspir ed Oxygen Hydration adequate: Yes Nausea and vomiting: No Pain level: 1 Mental status: Baseline
[2024-01-18 21:26] LABS: Glucose Point of Care 113 mg/dL (70-110)
== END 2024-01-18 13:40 | disposition home or self-care (01) ==
PROVIDERS: PCP Family Medicine; Visit Provider Podiatrist Foot & Ankle Surgery
PROC: (CPT 28005; principal; 2024-01-18 12:00)
DX: L97.514 Non-pressure chronic ulcer of other part of right foot with necrosis of bone (principal); M86.8X7 Other osteomyelitis, ankle and foot; I10 Essential (primary) hypertension; E11.69 Type 2 diabetes mellitus with other specified complication; E78.5 Hyperlipidemia, unspecified; Z87.891 Personal history of nicotine dependence
CPT/HCPCS: 28005; 28124; 36416; 82962; 87070; 87075; 87077; 87176; 87186; 87205; J0690; J2250; J2704; J3010; J7030

== ENCOUNTER → 2024-01-20 13:04 | Outpatient (BNVA) | payer MEDICARE, SELFPAY | PROVIDERS: PCP Family Medicine; Visit Provider Podiatrist Foot & Ankle Surgery | DX: L97.514 Non-pressure chronic ulcer of other part of right foot with necrosis of bone; E11.621 Type 2 diabetes mellitus with foot ulcer; M86.8X7 Other osteomyelitis, ankle and foot; Z79.84 Long term (current) use of oral hypoglycemic drugs | CPT/HCPCS: 99024 ==

== ENCOUNTER → 2024-02-01 10:56 | Outpatient (BNVA) | payer MEDICARE, SELFPAY | PROVIDERS: PCP Family Medicine; Visit Provider Podiatrist Foot & Ankle Surgery | DX: E11.42 Type 2 diabetes mellitus with diabetic polyneuropathy; M21.41 Flat foot [pes planus] (acquired), right foot; M21.42 Flat foot [pes planus] (acquired), left foot; M21.621 Bunionette of right foot; M21.622 Bunionette of left foot; Z79.84 Long term (current) use of oral hypoglycemic drugs | CPT/HCPCS: 99024; 99213 ==

== ENCOUNTER → 2024-02-16 11:45 | Outpatient (BNVA) | payer MEDICARE, SELFPAY | PROVIDERS: PCP Family Medicine; Visit Provider Podiatrist Foot & Ankle Surgery | DX: M21.621 Bunionette of right foot; M21.622 Bunionette of left foot; Z98.890 Other specified postprocedural states; E11.42 Type 2 diabetes mellitus with diabetic polyneuropathy; Z79.84 Long term (current) use of oral hypoglycemic drugs | CPT/HCPCS: 73630; 99024 ==

== ENCOUNTER → 2024-02-29 09:28 | Outpatient (BNVA) | payer MEDICARE, SELFPAY | PROVIDERS: PCP Family Medicine; Visit Provider Family Medicine | DX: E11.9 Type 2 diabetes mellitus without complications (principal) | CPT/HCPCS: 80053; 80061; 83036; 85025 ==

== ENCOUNTER → 2024-05-22 11:13 | Outpatient (BNVA) | payer MEDICARE, SELFPAY | PROVIDERS: PCP Family Medicine; Visit Provider Podiatrist Foot & Ankle Surgery | DX: E11.42 Type 2 diabetes mellitus with diabetic polyneuropathy (principal); Z79.84 Long term (current) use of oral hypoglycemic drugs | CPT/HCPCS: 99213 ==

== ENCOUNTER → 2024-07-12 11:09 | Outpatient (BNVA) | payer MEDICARE, SELFPAY | PROVIDERS: PCP Nurse Practitioner Family; Visit Provider Nurse Practitioner Family | DX: E11.9 Type 2 diabetes mellitus without complications (principal) | CPT/HCPCS: 80053; 80061; 83036; 84443; 85025 ==

== ENCOUNTER → 2024-09-18 11:00 | Outpatient (BNVA) | payer MEDICARE, SELFPAY | PROVIDERS: PCP Nurse Practitioner Family; Visit Provider Podiatrist Foot & Ankle Surgery | DX: E11.42 Type 2 diabetes mellitus with diabetic polyneuropathy (principal); Z79.84 Long term (current) use of oral hypoglycemic drugs | CPT/HCPCS: 99213 ==

== ENCOUNTER → 2024-12-12 11:47 | Outpatient (BNVA) | payer MEDICARE, SELFPAY | PROVIDERS: PCP Nurse Practitioner Family; Visit Provider Nurse Practitioner Family | DX: E11.9 Type 2 diabetes mellitus without complications (principal); Z12.5 Encounter for screening for malignant neoplasm of prostate; M79.10 Myalgia, unspecified site | CPT/HCPCS: 80053; 82306; 82607; 83036; 83735; 84443; 85025; G0103 ==

== ENCOUNTER → 2025-01-28 11:21 | Outpatient (BNVA) | payer MEDICARE, SELFPAY | PROVIDERS: PCP Nurse Practitioner Family; Visit Provider Podiatrist Foot & Ankle Surgery | DX: E11.42 Type 2 diabetes mellitus with diabetic polyneuropathy (principal); L60.3 Nail dystrophy; E11.8 Type 2 diabetes mellitus with unspecified complications; Z87.39 Personal history of other diseases of the musculoskeletal system and connective tissue; M21.41 Flat foot [pes planus] (acquired), right foot; M21.42 Flat foot [pes planus] (acquired), left foot; Z79.84 Long term (current) use of oral hypoglycemic drugs | CPT/HCPCS: 11721; 99213 ==

== ENCOUNTER 2025-01-31 12:04 | Inpatient (IN) | payer MEDICARE, SELFPAY ==
[2025-01-31] VITALS (7 sets, daily range): BP systolic 145–185; BP diastolic 79–117; PULSE 72–101; RESP 16–26; TEMP 36.8–37.1; O2SAT 96–98; BMI 30.6
--- NOTE | 2025-01-31 12:09 | XR_ITS ---
WS: [id number] Portable AP upright chest, 01/31/2025 Clinical Data: chest pain Comparison: Portable chest, 03/17/2021 Findings: No nodules, masses or effusions are seen. The heart is normal. The pulmonary vascularity is not increased. No pneumonia or pneumothorax is seen. The aortic arch and descending thoracic aorta show minimal tortuosity. Monitor leads are on the chest wall. XR/XR chest 1V portable [id number] Impression: Atherosclerosis.
--- NOTE | 2025-01-31 12:09 | ECG_ITS ---
[facility] Date: 2025-01-31 Pat Name: Camron Zuñiga Department: Room: Gender: Male Directory Clerk: : 1955 Requested By: Chilo Kemp Order Number: [id number] Reading MD: LORETTA WILSON Measurements Intervals [place] Rate: 96 P: 10 IN: 149 QRS: 16 QRSD: 123 T: 48 QT: 342 QTc: 434 Interpretive Statements SINUS RHYTHM MODERATE INTRAVENTRICULAR CONDUCTION DELAY [110+ ms QRS DURATION] Compared to ECG 03/17/2021 21:56:11 Intraventricular conduction delay now present Ventricular premature complex(es) no longer present Electronically Signed On 01-31-2025 22:20:11 CDT by LORETTA WILSON [id number]
[2025-01-31 12:22] LABS: Hematocrit 37.7 % (37-53); Hemoglobin 12.00 g/dL (11.27-16.99); Mean Corpuscular HGB Conc 31.8 g/dL (30-55); Mean Corpuscular Hemoglobin 25.4 pg (27-33); Mean Corpuscular Volume 79.9 fl (82-101); Nucleated Red Blood Cells % 0 %; Platelet Count 223 10^3/cmm (157-399); Red Blood Count 4.72 10^6/uL (3.85-5.65); White Blood Count 7.94 10^3/uL (3.29-11.43)
--- NOTE | 2025-01-31 12:29 | W.ED.CHESTPA ---
HPI - Chest Pain General: Chief Complaint: Chest Pain Stated Complaint: chest pain Time Seen by Provider: 01/31/25 12:07 History of Present Illness: 69-year-old male presents to the emergency room with complaints of chest pain. He is brought in by EMS from an outlying clinic. They have been seen there for chest discomfort patient was given 1 sublingual nitro in the emergency room is given 2 more en route by EMS as well as 324 of aspirin. He states the chest pressure was relieved by nitro. The patient relates he has intermittently had shortness of breath with exertion if he walks or exerts himself too much it will resolve with rest after approximately 10 minutes most days. This episode today was more intense than what he had before. No recent fever sweats chills cough. He reports most of his discomfort is just to the right of the midline in his chest. Associated symptoms: Deny abdominal pain, dyspnea or fever(s) Related Data Home Medications ?Medication ?Instructions ?Recorded ?Confirmed latanoprost 0.005 % eye drops 1 drp ophthalmic (eye) QPM 01/31/25 02/04/25 metformin 500 mg tablet,extended 500 mg PO BID 01/31/25 02/04/25 release 24 hr mupirocin 2 % topical ointment 1 applic topical BID PRN Skin 01/31/25 02/04/25 Irritation sitagliptin phosphate 100 mg 100 mg PO .@NOON 01/31/25 02/04/25 tablet (Januvia) Previous Rx's ?Medication ?Instructions ?Recorded blood-glucose meter (Blood Glucose #1 ea 05/07/22 Monitoring kit) blood sugar diagnostic (Accu-Chek #100 ea 01/02/24 Guide test strips) lancets 31 gauge #100 ea 09/21/24 amlodipine 5 mg tablet 5 mg PO BID #180 tabs 12/12/24 lisinopril 10 mg tablet 10 mg PO DAILY #90 tabs 12/12/24 Diabetic shoes with custom #1 ea 01/28/25 accommodated insoles aspirin 81 mg tablet,delayed 81 mg PO DAILY #30 tabs 02/02/25 release atorvastatin 40 mg tablet 40 mg PO BEDTIME #30 tabs 02/02/25 clopidogrel 75 mg tablet 75 mg PO DAILY #30 tabs 02/02/25 Allergies Allergy/AdvReac Type Severity Reaction Status Date / Time No Known Allergies Allergy Verified 01/28/25 11:24 Review of Systems Const: Denies: fever(s) or chills Card: Denies: chest pain Resp: Denies: dyspnea GI: Denies: abdominal pain : Denies: dysuria, urinary frequency or urinary urgency Musc: Denies: neck pain or back pain Skin/Breast: Denies: rash PFSH ED PFSH: Medical History Melanoma of nose Ankylosing spondylitis High risk medication use Seropositive rheumatoid arthritis of multiple sites Benign essential HTN Macular degeneration Smoking quit in 1993, smoked for 30 years Dyslipidemia associated with type 2 diabetes mellitus Stable angina Type 2 diabetes mellitus Surgical History H/O eye surgery History of foot surgery right foot 2023 Status post colonoscopy (11/18/21) Previous back surgery Family History Other Cancer Diabetes Hypertension Lung disease Rheumatoid arthritis Denies family history of Lupus Chronic kidney disease (CKD) Family history of premature coronary artery disease Stroke Social History Smoking and tobacco/nicotine status: former use of tobacco/nicotine Quit status (tobacco/nicotine): has quit using Year quit tobacco: 2001 Second hand smoke exposure: No Alcohol intake: never Substance/Drug Use: never Caregiver/support person: Yes (spouse) Lives independently: Yes Household members: spouse Housing: House Marital status: Current occupational status: employed Current gender identity: Male Physical Exam Const: GENERAL APPEARANCE: cooperative ORIENTATION/CONSCIOUSNESS: Yes awake, Yes oriented to person, Yes oriented to place and Yes oriented to time HENMT: COMMON NORMALS: normocephalic, atraumatic and hearing grossly normal bilaterally HEAD & SCALP: normocephalic and atraumatic Resp: COMMON NORMALS: normal respiratory effort, No retractions, No use of accessory muscles and clear to auscultation bilaterally AUSCULTATION: clear to auscultation bilaterally Cardio: COMMON NORMALS: regular rate, regular rhythm and No murmurs present (Cardio) RATE: regular rate RHYTHM: regular rhythm GI: COMMON NORMALS: Soft to palpation and No hepatosplenomegaly present AUSCULTATION: Yes normoactive bowel sounds PALPATION: Yes Soft to palpation, No Tenderness to palpation present (GI), No Guarding due to palpation present (GI) and Yes No hepatosplenomegaly present Extremity: COMMON NORMALS: normal to inspection, capillary refill normal, no clubbing, cyanosis or edema, no calf tenderness and no pedal edema Neuro: SENSORIUM/ORIENTATION: Yes oriented to person, Yes oriented to place and Yes oriented to time Skin: COMMON NORMALS: no rashes or lesions noted GENERAL SKIN EXAM: no rashes or lesions noted Course Vital Signs: Vital signs: Vital Signs Temperature 97.9 F 02/02/25 07:34 Pulse Rate 70 02/02/25 11:09 Respiratory Rate 19 H 02/02/25 11:09 Blood Pressure 150/86 02/02/25 11:09 Pulse Oximetry 96 02/02/25 11:09 Oxygen Delivery Me thod Room Air 02/02/25 03:38 MDM - Chest Pain Medical Decision Making Patient is presenting constellation of symptoms very concerning for coronary artery disease. He has been worsening symptoms over the last week with ongoing chest pain prior to today. He did have improvement with nitro. Discussed with cardiology they recommend heparinization admission and consultation anticipating coronary angiogram discussed with hospitalist orders written cardiology consulted Medical Records I reviewed the patient's medical records. Lab Data I reviewed the patient's lab results. 02/02/25 02:44 02/02/25 02:44 Radiology Impressions Chest X-Ray 01/31/25 12:09 Impression: Atherosclerosis. Laboratory Results WBC 7.94 10^3/uL (3.29-11.43) 01/31/25 12:12 RBC 4.72 10^6/uL (3.85-5.65) 01/31/25 12:12 Hgb 12.00 g/dL (11.27-16.99) 01/31/25 12:12 Hct 37.7 % (37-53) 01/31/25 12:12 MCV 79.9 fl (82-101) L 01/31/25 12:12 MCH 25.4 pg (27-33) L 01/31/25 12:12 MCHC 31.8 g/dL (30-55) 01/31/25 12:12 RDW 14.4 % (12.1-15.1) 01/31/25 12:12 Plt Count 223 10^3/cmm (157-399) 01/31/25 12:12 MPV 10.3 fL (7.4-10.4) 01/31/25 12:12 Neut % (Auto) 75.9 % 01/31/25 12:12 Lymph % (Auto) 16.4 % 01/31/25 12:12 [place] % (Auto) 6.5 % 01/31/25 12:12 Eos % (Auto) 0.5 % 01/31/25 12:12 Baso % (Auto) 0.3 % 01/31/25 12:12 Neut # (Auto) 6.03 10^3/uL (1.8-7.7) 01/31/25 12:12 Lymph # (Auto) 1.3 10^3/uL (0.8-4.8) 01/31/25 12:12 [place] # (Auto) 0.5 10^3/uL (0.2-0.9) 01/31/25 12:12 Eos # (Auto) 0.0 10^3/uL (0.0-0.8) 01/31/25 12:12 Baso # (Auto) 0.0 10^3/uL (0.0-0.1) 01/31/25 12:12 Nucleated RBC % (auto) 0 % 01/31/25 12:12 Nucleated RBCs # 0.0 /100WBC 01/31/25 12:12 Sodium 136 mmol/L (136-145) 01/31/25 12:12 Potassium 4.5 mmol/L (3.5-5.1) 01/31/25 12:12 Chloride 100 mmol/L (98-107) 01/31/25 12:12 Carbon Dioxide 21 mmol/L (22-29) L 01/31/25 12:12 Anion Gap 19.5 (5-19) H 01/31/25 12:12 BUN 20 mg/dL (8-23) 01/31/25 12:12 Creatinine 0.8 mg/dL (0.7-1.2) 01/31/25 12:12 GFR Calculation 95.8 mL/min (90-130) 01/31/25 12:12 Glucose 143 mg/dL (65-115) H 01/31/25 12:12 Calculated Osmolality 287 mOsm/kg (285-295) 01/31/25 12:12 Calcium 9.3 mg/dL (8.5-10.5) 01/31/25 12:12 Total Bilirubin 0.2 mg/dL (0.15-1.2) 01/31/25 12:12 AST 21 U/L (0-40) 01/31/25 12:12 ALT 14 U/L (0-41) 01/31/25 12:12 Alkaline Phosphatase 73 U/L (40-130) 01/31/25 12:12 Troponin T Baseline 16 ng/L (0-15) H 01/31/25 12:12 Troponin T 120 Minute 19.08 ng/L (0-15) H 01/31/25 14:05 Delta Troponin T 3.08 ABS# (0-10) 01/31/25 14:05 Total Protein 7.6 g/dL (6.6-8.7) 01/31/25 12:12 Albumin 4.4 g/dL (3.5-5.2) 01/31/25 12:12 Globulin 3.2 g/dL (1.3-4.6) 01/31/25 12:12 All radiology interpretation(s) finalized by discharge EKG Data EKG 1: Interpretation: EKG 731 2025-06-09 sinus rhythm rate of 96 TX interval 149 QTc 396 isolated Q wave in lead III no acute ST elevation or depression.Compared to EKG 03/17/2021 no significant new changes. Previous EKG had occasional PVC Discharge Plan Discharge Patient Disposition: Admitted As Inpatient Admit Provider: Иван Mars Clinical Impression: Unstable angina Condition: Stable Discharge Diet: Cardiac Discharge Activity: Resume usual activity Coding Level of Care Code ED Registry Nurse for Jimenezg Brian
[2025-01-31 12:36] LABS: Troponin(5th) Baseline 16 ng/L (0-15)
[2025-01-31 12:41] LABS: Alanine Aminotransferase 14 U/L (0-41); Albumin Level 4.4 g/dL (3.5-5.2); Alkaline Phosphatase 73 U/L (40-130); Anion Gap 19.5 (5-19); Aspartate Amino Transferase 21 U/L (0-40); Blood Urea Nitrogen 20 mg/dL (8-23); Calcium 9.3 mg/dL (8.5-10.5); Carbon Dioxide 21 mmol/L (22-29); Chloride 100 mmol/L (98-107); Creatinine Clr Calc Pharmacy 104.8926; Globulin 3.2 g/dL (1.3-4.6); Glucose 143 mg/dL (65-115); Osmolality Calculated 287 mOsm/kg (285-295); Potassium 4.5 mmol/L (3.5-5.1); Sodium 136 mmol/L (136-145); Total Protein 7.6 g/dL (6.6-8.7)
--- NOTE | 2025-01-31 13:24 | PC.NURSE ---
this nurse assumed pt care from BRENDA Sheffield at 1300.
[2025-01-31 14:33] LABS: Troponin 5 2HR 19.08 ng/L (0-15); Troponin 5 2HR Delta 3.08 ABS# (0-10)
--- NOTE | 2025-01-31 15:34 | ECG_ITS ---
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
--- NOTE | 2025-01-31 15:50 | P.HP_ITS ---
Providers/Chief Complaint 2 Admitting Physician: Dr. Mars Primary Care Provider: DONNELL Preston Chief Complaint: chest pain History of Present Illness Camron Zuñiga is a 69 year old male presenting with ongoing CP for about one week, with symptoms worsening today. He has no PMHx of cardiac disease or heart failure, history significant for DMII on oral treatment and HTN. The pain is in the bilateral lower sternum, alternating sides. It radiates to his jaw at times. Associated to paresthesias of the BL upper and lower extremities which is ongoing and dizziness. He describes it as a light pain, exertion has made the pain worse and rest makes it better. It was also improved with nitro and ASA on presentation to the ER. He presented to the ER for ongoing worsening symptoms. Review of Systems 2 Const: Denies: fever(s), chills or body aches Eyes: Denies: change in vision ENMT: Denies: throat pain or hoarseness Card: Reports: chest pain Resp: Denies: dyspnea GI: Denies: abdominal pain, nausea or vomiting Musc: Denies: neck pain or back pain Skin/Breast: Denies: rash, pruritus or erythema Neuro: Denies: headache(s) Psych: Denies: anxiety or depression Medications/Allergies Home Medications ?Medication ?Instructions ?Recorded ?Confirmed ?Last Taken ?Type blood-glucose meter (Blood Glucose #1 ea 05/07/2201/03 Unknown Rx Monitoring kit) blood sugar diagnostic (Accu-Chek #100 ea 01/02/24 Unknown Rx Guide test strips) lancets 31 gauge #100 ea 09/21/24 01/31/25 Un known Rx amlodipine 5 mg tablet 5 mg PO BID #180 tabs 01/31/25 01/31/25 Rx lisinopril 10 mg tablet 10 mg PO DAILY #90 tabs 12/0201/31/25 01/31/25 Rx Diabetic shoes with custom #1 ea 01/28/25 01/31/25 Unk nown Rx accommodated insoles latanoprost 0.005 % eye drops 1 drp ophthalmic (eye) Q PM 01/31/25 01/31/25 01/30/25 History metformin 500 mg tablet,extended 500 mg PO BID 5 01/31/25 01/31/25 History release 24 hr mupirocin 2 % topical ointment 1 applic topical BID NM N Skin 01/31/25 01/31/25 Unknown History Irritation sitagliptin phosphate 100 mg 100 mg PO .@NOON 01/31/25 01/31/25 01/31/25 History tablet (Januvia) Allergies Allergy/AdvReac Type Severity Reaction Status Date / Time No Known Allergies Allergy Verified 01/28/25 11:24 PFSH Acute 2 PFSH: Medical History (Updated 01/31/25 @ 16:34 by DONNELL Hudson) Melanoma of nose Ankylosing spondylitis High risk medication use Seropositive rheumatoid arthritis of multiple sites Benign essential HTN Macular degeneration Smoking quit in 1993, smoked for 30 years Dyslipidemia associated with type 2 diabetes mellitus Stable angina Type 2 diabetes mellitus Surgical History (Updated 01/31/25 @ 15:58 by Иван Mars MD) H/O eye surgery History of foot surgery right foot 2023 Status post colonoscopy (11/18/21) Previous back surgery Family History Other Cancer Diabetes Hypertension Lung disease Rheumatoid arthritis Denies family history of Lupus Chronic kidney disease (CKD) Family history of premature coronary artery disease Stroke Social History Smoking and tobacco/nicotine status: former use of tobacco/nicotine Quit status (tobacco/nicotine): has quit using Year quit tobacco: 2001 Second hand smoke exposure: No Alcohol intake: never Substance/Drug Use: never Caregiver/support person: Yes (spouse) Lives independently: Yes Household members: spouse Housing: House Marital status: Current occupational status: employed Current gender identity: Male Vitals/I&O/Wt Last Vital Signs Temp 98.2 F 01/31/25 12:05 Pulse 87 01/31/25 14:00 Resp 16 01/31/25 14:00 BP 175/90 01/31/25 14:00 Pulse Ox 97 01/31/25 14:00 O2 Del Method Room Air 01/31/25 13:22 Weight last 48 hrs Weight 99.79 kg Physical Exam 2 Const: COMMON NORMALS: no acute distress, average body habitus, patient oriented x3 and no limitations HENMT: COMMON NORMALS: normocephalic and atraumatic Eye: COMMON NORMALS: Equal, round and reactive pupils present Neck/C-Spine: COMMON NORMALS: no lymphadenopathy Lymph: LYMPHATIC: no lymphadenopathy noted Chest: COMMONS NORMALS: normal palpation of entire chest wall (without reproduction of pain) Resp: COMMON NORMALS: normal respiratory effort, No retractions, No use of accessory muscles and clear to auscultation bilaterally Cardio: COMMON NORMALS: no JVD, regular rate, regular rhythm, No gallops present (Cardio), No murmurs present (Cardio) and No rub (Cardio) GI: COMMON NORMALS: Soft to palpation, non-tender and no masses Extremity: COMMON NORMALS: no clubbing, cyanosis or edema Neuro: COMMON NORMALS: patient oriented x3 and CN's II-XII intact bilaterally Psych: COMMON NORMALS: mental status grossly normal, Normal thought process present, normal affect and speech normal Skin: COMMON NORMALS: no rashes or lesions noted and no wounds Data 01/31/25 12:12 01/31/25 12:12 A&P Assessment and plan 1. Chest pain: Plan: 69 year old male presenting with chest pain stable angina - chest pain with typical features - worsens with exertion, improves with rest, ASA, nitro - ongoing for the last one week, worsening today - mildly elevated troponin at 16, this was mildly elevated in 2020 as well - cardiology consulted in ER, planning cath - fasting lipid panel in AM - gentle IV fluids with plan for IV contrast scan - morphine available - antiemetics HTN - cont amlodipine, lisinopril Macular degeneration Diabetic retinopathy - cont eye drops DMII, well controlled - hold home metformin, januvia - SSI - A1c 6.1 on December 12, no need to repeat PPx: heparin Diet: advance when OK with cardiology PDMP PDMP Reviewed: Not Reviewed Attestations 2 Medical Necessity Statement*: Anticipate > 2 midnights for chest pain, cath Time Spent in Patient Care: 16 - 35 minutes (>than 50% of time sp ent in counselling and/or direct pt care on unit) . Coding Level of Care Code Acute Code for [facility] F[facility] Diagnoses Chest pain R07.9
--- NOTE | 2025-01-31 16:22 | P.CONIM_ITS ---
<Statement entered by Harlan Garza M.D - 02/05/25 07:46> Patient was evaluated and cared for in conjunction with an advanced practice practitioner.? I personally examined the patient and reviewed the chart and all pertinent data including imaging, telemetry, and laboratory results.? I discussed the patient in detail with the advanced practice practitioner.? Please see? their note for complete consult note, testing results and agreed upon plan of care for the patient. GENERAL: Patient is alert, awake and oriented x3. HEART: Regular S1 and S2 LUNGS: Clear to auscultate bilaterally. CENTRAL NERVOUS SYSTEM: Grossly nonfocal. EXTREMITIES: Lower extremities without edema bilaterally. Providers/Reason For Consult 2 Consulting Physician/Specialty*: Dr Garza, cardiology Reason for Consult*: Exertional chest pain, elevated troponin Requesting Physician: Dr. Salinas Attending Physician: Dr. Mars Primary Care Provider: DONNELL Preston History of Present Illness History of Present Illness Camron Zuñiga is a 69 year old male with past medical history of hypertension, macular degeneration presented to the emergency room today due to chest pain. He began feeling dizzy after eating breakfast with shortness of breath and some numbness in his hands. While ambulating in his house he began having substernal chest pressure, also pain radiating up to his left jaw, it is rated 3-5/10, only present with exertion. For the last 2-3 nights he has had some orthopnea, no peripheral edema or increase in weight noted. His blood pressure has been less than 140 systolic before taking his morning medicines. He is chest pain-free now. He had a similar episode 2 to 3 years ago and went for evaluation in [place]. Per the patient (we do not have records) they adjusted his blood pressure medicine. He has never had a stress test or coronary angiogram. There is an echocardiogram in our system from when he saw Dr. Cook previously in 2019, LVEF was 80% grade 1 diastolic dysfunction no significant valvular abnormality. Home medications include amlodipine, lisinopril, Januvia. He is diabetic and does have some peripheral neuropathy. The macular degeneration causes poor vision, especially long distance vision. He is in sinus rhythm, nonspecific EKG changes present. Troponin series:16->19. He is hypertensive here in the ER, 171/96. No history of CKD. Review of Systems 2 Const: Denies: fever(s), chills, change in weight, fatigue or diaphoresis Eyes: Denies: change in vision ENMT: Denies: epistaxis Card: Reports: chest pain; Denies: palpitations, irregular heart rhythm, edema, syncope, pre-syncope, dyspnea on exertion, orthopnea or leg pain with exertion Resp: Denies: dyspnea, productive cough or wheezing GI: Denies: nausea, vomiting, hematemesis, hematochezia or melena : Denies: hematuria Musc: Denies: extremity swelling Edmundo/Lymph: Denies: easy bruising or easy bleeding Medications/Allergies Home Medications ?Medication ?Instructions ?Recorded ?Confirmed ?Last Taken ?Type blood-glucose meter (Blood Glucose #1 ea 05/07/2201/03 Unknown Rx Monitoring kit) blood sugar diagnostic (Accu-Chek #100 ea 01/02/24 Unknown Rx Guide test strips) lancets 31 gauge #100 ea 09/21/24 01/31/25 Un known Rx amlodipine 5 mg tablet 5 mg PO BID #180 tabs 01/31/25 01/31/25 Rx lisinopril 10 mg tablet 10 mg PO DAILY #90 tabs 12/0201/31/25 01/31/25 Rx Diabetic shoes with custom #1 ea 01/28/25 01/31/25 Unk nown Rx accommodated insoles latanoprost 0.005 % eye drops 1 drp ophthalmic (eye) Q PM 01/31/25 01/31/25 01/30/25 History metformin 500 mg tablet,extended 500 mg PO BID 5 01/31/25 01/31/25 History release 24 hr mupirocin 2 % topical ointment 1 applic topical BID NV N Skin 01/31/25 01/31/25 Unknown History Irritation sitagliptin phosphate 100 mg 100 mg PO .@NOON 01/31/25 01/31/25 01/31/25 History tablet (Januvia) Allergies Allergy/AdvReac Type Severity Reaction Status Date / Time No Known Allergies Allergy Verified 01/28/25 11:24 PFSH Acute 2 PFSH: Medical History Melanoma of nose Ankylosing spondylitis High risk medication use Seropositive rheumatoid arthritis of multiple sites Benign essential HTN Macular degeneration Smoking quit in 1993, smoked for 30 years Dyslipidemia associated with type 2 diabetes mellitus Stable angina Type 2 diabetes mellitus Surgical History H/O eye surgery History of foot surgery right foot 2023 Status post colonoscopy (11/18/21) Previous back surgery Family History Other Cancer Diabetes Hypertension Lung disease Rheumatoid arthritis Denies family history of Lupus Chronic kidney disease (CKD) Family history of premature coronary artery disease Stroke Social History Smoking and tobacco/nicotine status: former use of tobacco/nicotine Quit status (tobacco/nicotine): has quit using Year quit tobacco: 2001 Second hand smoke exposure: No Alcohol intake: never Substance/Drug Use: never Caregiver/support person: Yes (spouse) Lives independently: Yes Household members: spouse Housing: House Marital status: Current occupational status: employed Current gender identity: Male Vitals/I&O/Wt Last Vital Signs Temp 98.2 F 01/31/25 12:05 Pulse 87 01/31/25 14:00 Resp 16 01/31/25 14:00 BP 175/90 01/31/25 14:00 Pulse Ox 97 01/31/25 14:00 O2 Del Method Room Air 01/31/25 13:22 Weight last 48 hrs Weight 220 lb Physical Exam 2 Const: COMMON NORMALS: no acute distress and patient oriented x3 GENERAL APPEARANCE: cooperative and comfortable ORIENTATION/CONSCIOUSNESS: Yes awake, Yes oriented to person, Yes oriented to place and Yes oriented to time Chest: COMMONS NORMALS: normal inspection of the chest and normal palpation of entire chest wall CHEST: Yes Symmetrical chest wall rise Resp: COMMON NORMALS: normal respiratory effort, No retractions, No use of accessory muscles and clear to auscultation bilaterally EFFORT & INSPECTION: Yes symmetric chest movement AUSCULTATION: clear to auscultation bilaterally Cardio: COMMON NORMALS: regular rate, regular rhythm, S1 normal heart sound present, S2 normal heart sound present, No gallops present (Cardio), No clicks present (Cardio), No murmurs present (Cardio) and No rub (Cardio) RATE: r egular rate RHYTHM: regular rhythm HEART SOUNDS: S1 normal heart sound present and S2 normal heart sound present PERIPHERAL PULSES: radial pulses present Extremity: COMMON NORMALS: no pedal edema Neuro: COMMON NORMALS: patient oriented x3 and moves all extremities S ENSORIUM/ORIENTATION: Yes oriented to person, Yes oriented to place and Yes oriented to time Data 01/31/25 12:12 01/31/25 12:12 A&P Assessment and plan 1. Chest pain: 2. Benign essential HTN: 3. Dyslipidemia associated with type 2 diabetes mellitus: 4. Type 2 diabetes mellitus: 5. Unstable angina: Plan: Symptoms are concerning for unstable angina, will plan for coronary angiogram tomorrow morning at 0730. He can eat today. N.p.o. after midnight tonight. Procedure has been discussed in detail with the patient, including risk of bleeding, stroke, contrast-induced nephropathy. He is willing to proceed. He is chest pain-free currently, can start nitroglycerin infusion if he develops recurrence of chest pain. Restart amlodipine for hypertension. PDMP PDMP Reviewed: Not Reviewed Coding Level of Care Code Acute Code for [facility] Fwd Diagnoses Chest pain R07.9 Benign essential HTN I10 Dyslipidemia associated with type 2 diabetes mellitus E11.69; E78.5 Type 2 diabetes mellitus E11.9 Unstable angina I20.0
--- NOTE | 2025-01-31 18:02 | ECG_ITS ---
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
[2025-01-31 18:37] LABS: Troponin 5 6HR 17.62 ng/L (0-15); Troponin 5 6HR Delta 1.62 ng/L (0-12)
[2025-01-31] MEDS: heparin 5,000 unit/mL INJ 1 mL 5000 UNIT SUBCUT (20:15)
[2025-02-01] VITALS (9 sets, daily range): BP systolic 125–165; BP diastolic 69–89; PULSE 65–83; RESP 15–20; TEMP 36.4–36.7; O2SAT 96–98
[2025-02-01 04:07] LABS: Hematocrit 34.7 % (37-53); Hemoglobin 11.20 g/dL (11.27-16.99); Mean Corpuscular HGB Conc 32.3 g/dL (30-55); Mean Corpuscular Hemoglobin 25.6 pg (27-33); Mean Corpuscular Volume 79.2 fl (82-101); Nucleated Red Blood Cells % 0 %; Platelet Count 200 10^3/cmm (157-399); Red Blood Count 4.38 10^6/uL (3.85-5.65); White Blood Count 6.67 10^3/uL (3.29-11.43)
[2025-02-01 04:26] LABS: Anion Gap 15.0 (5-19); Blood Urea Nitrogen 15 mg/dL (8-23); Calcium 9.0 mg/dL (8.5-10.5); Carbon Dioxide 24 mmol/L (22-29); Chloride 104 mmol/L (98-107); Creatinine Clr Calc Pharmacy 101.6932; Glucose 135 mg/dL (65-115); Osmolality Calculated 291 mOsm/kg (285-295); Potassium 4.0 mmol/L (3.5-5.1); Sodium 139 mmol/L (136-145)
[2025-02-01 04:28] LABS: Cholesterol 167 mg/dL (0-200); HDL Cholesterol 46 mg/dL (60-100); Triglycerides 90 mg/dL (0-150)
--- OUTSIDE RECORDS SUMMARY | 2025-02-01 05:25 | XMS_ITS | Clinical Summary ---
Author Organization [facility] Address [address] [place]as: Epic Prelude ADT RIK BLANCO [address] Care Team Providers Care Poultry Dressing Worker Name Role Phone Unavailable Primary Care Provider Unavailabl e Medications amLODIPine (NORVASC) 5 mg tablet Take 1 Tablet by mouth 2 times daily. 10/09/2024 Active latanoprost (XALATAN) 0.005 % solution 12/18/2024 Active lisinopriL (PRINIVIL) 10 mg tablet Take 1 Tablet by mouth daily. 10/09/2024 Active metFORMIN (GLUCOPHAGE XR) 500 mg Extended Release 24 hour tablet Take 1 Tablet by mouth 2 times daily. 11/20/2024 Active Januvia 100 mg Tablet Take 1 Tablet by mouth daily. 11/21/2024 Active Active Problems No known active problems Encounters Date Type Department Care Team Description 12/19/2024 1:30 PM CDT Office Visit [facility] [place] [address] [place] [address] Jc Murray MD Proliferative diabetic retinopathy of both eyes without macular edema associated with type 2 diabetes mellitus (CMS/HCC) (Primary Dx); Epiretinal membrane (ERM) of left eye; Lamellar macular hole, left; Pseudophakia of both eyes 12/13/2024 Telephone [facility] [place] [facility] [address] [place] [address] Provider, Abstract Medical Records (Requested A1C lab results from external provider for continuity of care/insurance quality measures- need results uploaded and resulted in chart.) from Last 3 Months Social History Tobacco Use Types Packs/Day Years Used Date Smoking Tobacco: Former Cigarettes Smokeless Tobacco: Never Tobacco Cessation:Counseling Given: No Alcohol Use Standard Drinks/Week Comments Never 0 (1 standard drink = 0.6 oz pur e alcohol) Sex and Gender Information Value Date Recorded Sex Assigned at Not on file 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 [place] [address] Jc Murray MD [address] [place] [address] Health Maintenance Due Date Last Done Comments DTAP/TDAP/TD VACCINES (1 - Tdap) 1974 COLORECTAL SCREENING 2000 Colorectal Cancer Screening 2000 FIT-DNA Q 3 years 2000 FIT/FOBT Q 1 year 2000 Flex Sig/CT Colonography Q 5 years 2000 PNEUMOCOCCAL VACCINE 50+ YEA RS (1 of 1 - PCV) 2005 ZOSTER VACCINE (1 of 2) 2005 Abdominal Aortic Aneurysm (A AA) Screening 2020 COVID-19 Vaccine (5 - 2023-2 5 season) 2024 04/21/2023, 06/08/2021, 10/27/2020, Additional history exists INFLUENZA VACCINE (#1) 2025 04/21/2023 RSV VACCINE (60+ or ) (1 - 1-dose 75+ series) 2030 Procedures Procedure Name Priority Date/Time Associated Diagnosis Comments FLUORESCEIN ANGIOGRAPHY - OU - BOTH EYES Routine 12/19/2024 3:12 PM CDT Proliferative diabetic retinopathy of both eyes without macular edema associated with type 2 diabetes mellitus (CMS/HCC) OCT, RETINA - OU - BOTH EYES Routine 12/19/2024 1:35 PM CDT Proliferative diabetic retinopathy of both eyes without macular edema associated with type 2 diabetes mellitus (CMS/HCC) EYE DROPS Routine 12/19/2024 1:18 PM CDT Proliferative diabetic retinopathy of both eyes without macular edema associated with type 2 diabetes mellitus ([facility]) from Last 3 Months Results * FLUORESCEIN ANGIOGRAPHY - OU - BOTH EYES (12/19/2024 3:12 PM CDT) Narrative [facility] OPHTHALMOLOGY ORDERS - 12/19/2024 4:09 PM CDT Right Eye Mid/Late phase findings include (No neovascularization ). Choroidal neovascularization is not present. Left Eye Mid/Late phase findings include (No neovascularization ). Choroidal neovascularization is not present. Notes Left Eye First Jc Murray MD OPHTH PHOTOGRAPHY Final Result Performing Organization Address [facility] Co de Phone Number [facility] OPHTHALMOLOGY ORDERS * OCT, RETINA - OU - BOTH EYES (12/19/2024 1:35 PM CDT) Narrative [facility] OPHTHALMOLOGY ORDERS - 12/19/2024 4:05 PM CDT OD: retinal thinning OS: Epiretinal membrane with lamellar hole. us Jc Murray MD OPHTH TOMOGRAPHY Final Result Performing Organization Address [facility] Co de Phone Number [facility] OPHTHALMOLOGY ORDERS * EYE DROPS (12/19/2024 1:18 PM CDT) Narrative [facility] - 12/19/2024 4:09 PM CDT Medications Eye Drops: 2 Drop proparacaine (OPHTHAINE) 0.5% ophthalmic solution Route: Both Eyes ND: 87660-731-33, Lot: [id number], Expiration date: 08/04/2026 1 Drop tropicamide (MYDRIACYL) 1% ophthalmic solution Route: Both Eyes NDC: 94086-399-38, Lot: [id number], Expiration date: 11/01/2025 1 Drop phenylephrine (AK-DILATE, MYDFRIN) 2.5% ophthalmic solution Route: Both Eyes ND: 77167-220-61, Lot: [id number], Expiration date: 12/02/2025 Jc Murray MD OPHTH CLINIC PROCEDURES Final R esult [facility] CLIA[facility] [id number] [address] [place] [address] from Last 3 Months Insurance [facility] PPO [facility]
--- NOTE | 2025-02-01 06:20 | PC.NURSE ---
hold heparin per laborer cement gun placing
--- NOTE | 2025-02-01 07:42 | W.PM.OPSUD ---
Surgery/Procedure H&P Update DATE OF PROCEDURE: February 01, 2025 DATE H&P PERFORMED: 01/31/25 H&P UPDATE INFORMATION: I have reviewed H&P completed within last 30 days, I have examined patient prior to procedure and No changes to prior documentation PREOP DIAGNOSIS: Worsening angina PRIMARY INDICATION FOR PROCEDURE: Worsening angina PLANNED PROCEDURE: Operation Date: 02/01/25 09:05 Proposed Procedures p Cardiac Catheterization(Left) - Harlan Garza M.D Possible percutaneous coronary intervention PATIENT REASSESSED PRIOR TO SEDATION, WITH NO CHANGE NOTED: Yes PHYSICAL EXAM: alert, oriented x 3, clear to auscultation bilaterally and regular rate & rhythm AIRWAY EVAL/ANESTHESIA PLAN: normal airway, ASA III, Local Anesthesia, Risks, benefits & alternatives of sedation and/or procedure discussed and Patient agrees to continue as planned ADDITIONAL INFORMATION: Moderate sedation
--- NOTE | 2025-02-01 07:45 | PC.NURSE ---
to laboratory inspector ushered via wheelchair.
--- NOTE | 2025-02-01 08:29 | PM.PROC ---
Procedure Note: Date of procedure: 02/01/25 Pre-procedure diagnosis: Worsening angina/ unstable angina Post-procedure diagnosis: other (Severe distal RCA stenosis status post successful revascularization with 1 stent.) Procedure: Distal RCA has severe stenosis. Post PCI with 1 stent. Small to medium sized diagonal artery is subtotally occluded. Brief attempt at wiring was done however given size of the vessel and wires inability to cross, we decided to abort further attempts. The benefit of PCI will be minimal in this sized vessel. LAD, left main artery and OM branches are patent. Dual antiplatelet therapy with aspirin and Plavix High intensity statin therapy Outpatient cardiology follow up in 2 weeks Performing Provider: Harlan Garza Complications: None Condition: stable Disposition: floor Coding Level of Care Code Acute Code for Yovanny Torres
--- NOTE | 2025-02-01 09:40 | PC.SOCIAL ---
IMM Update pg 2 of IMM Updated and reviewed w/ patient. Copy provided and copy dated, initialed and placed in chart.
--- NOTE | 2025-02-01 10:00 | P.PN_ITS ---
<Statement entered by Harlan Garza M.D - 02/05/25 08:08> Patient was cared for in conjunction with an advanced practice practitioner.? I reviewed the chart and all pertinent data including imaging, telemetry, and laboratory results.? I discussed the patient in detail with the advanced practice practitioner.? Please see?their note for progress note, testing results and agreed upon plan of care for the patient. Subjective 2 Subjective: He underwent coronary angiogram this morning, PCI of the distal RCA. Small caliber diagonal with subtotal occlusion unable to cross with a wire. LAD, left main, OM patent. No complications with right radial cath site. No chest pain or shortness of breath since the procedure. Vitals/I&O/Wt Last Vital Signs Temp 97.6 F 02/01/25 11:40 Pulse 65 02/01/25 11:40 Resp 20 H 02/01/25 11:40 BP 125/69 02/01/25 11:40 Pulse Ox 97 02/01/25 11:40 O2 Del Method Room Air 02/01/25 11:40 01/31/25 02/01/25 02/01/25 22:59 06:59 14:59 Intake Total 761.25 / 761.25 313.333 / 313.333 Balance 761.25 / 761.25 313.333 / 313.333 Weight last 48 hrs Weight 213 lb Weight 213 lb 4.8 oz Weight 220 lb Physical Exam 2 Const: COMMON NORMALS: no acute distress and patient oriented x3 GENERAL APPEARANCE: cooperative ORIENTATION/CONSCIOUSNESS: Yes awake, Yes oriented to person, Yes oriented to place and Yes oriented to time Chest: COMMONS NORMALS: normal inspection of the chest and normal palpation of entire chest wall CHEST: Yes Symmetrical chest wall rise Resp: COMMON NORMALS: normal respiratory effort, No retractions, No use of accessory muscles and clear to auscultation bilaterally AUSCULTATION: clear to auscultation bilaterally Cardio: COMMON NORMALS: regular rate, regular rhythm, S1 normal heart sound present, S2 normal heart sound present, No gallops present (Cardio), No clicks present (Cardio), No murmurs present (Cardio) and No rub (Cardio) RATE: r egular rate RHYTHM: regular rhythm HEART SOUNDS: S1 normal heart sound present and S2 normal heart sound present PERIPHERAL PULSES: radial pulses present positive right 2+ and femoral pulses present positive right 2+ Neuro: COMMON NORMALS: patient oriented x3 and moves all extremities S ENSORIUM/ORIENTATION: Yes oriented to person, Yes oriented to place and Yes oriented to time Skin: WOUNDS: Yes surgical site (no hematoma palpable) Details: no odor Data 02/01/25 03:27 02/01/25 03:27 A&P Assessment and plan 1. Unstable angina: 2. Coronary artery disease: 3. Benign essential HTN: 4. Dyslipidemia associated with type 2 diabetes mellitus: 5. Type 2 diabetes mellitus: Plan: S/P PCI of the distal RCA. He will continue aspirin Plavix, will start atorvastatin tonight. Continue amlodipine, lisinopril for blood pressure control. PDMP PDMP Reviewed: Not Reviewed Attestations 2 Medical Necessity Statement*: PCI of the RCA today Coding Level of Care Code Acute Code for [facility] Diagnoses Unstable angina I20.0 Coronary artery disease I25.10 Benign essential HTN I10 Dyslipidemia associated with type 2 diabetes mellitus E11.69; E78.5 Type 2 diabetes mellitus E11.9
--- NOTE | 2025-02-01 10:45 | P.PN_ITS ---
Subjective 2 Subjective: now S/P cath with PCI. Vitals/I&O/Wt Last Vital Signs Temp 97.6 F 02/01/25 08:57 Pulse 72 02/01/25 08:57 Resp 17 02/01/25 08:57 BP 140/82 02/01/25 08:57 Pulse Ox 96 02/01/25 08:57 O2 Del Method Room Air 02/01/25 08:57 01/31/25 02/01/25 02/01/25 22:59 06:59 14:59 Intake Total 761.25 / 7607.28 193.333 / 193.333 Balance 761.25 / 7607.28 193.333 / 193.333 Weight last 48 hrs Weight 96.615 kg Weight 96.751 kg Weight 99.79 kg Physical Exam 2 Const: COMMON NORMALS: no acute distress and patient oriented x3 GENERAL APPEARANCE: cooperative and comfortable ORIENTATION/CONSCIOUSNESS: Yes awake, Yes oriented to person, Yes oriented to place and Yes oriented to time Chest: COMMONS NORMALS: normal inspection of the chest and normal palpation of entire chest wall CHEST: Yes Symmetrical chest wall rise Resp: COMMON NORMALS: normal respiratory effort, No retractions, No use of accessory muscles and clear to auscultation bilaterally EFFORT & INSPECTION: Yes symmetric chest movement AUSCULTATION: clear to auscultation bilaterally Cardio: COMMON NORMALS: regular rate, regular rhythm, S1 normal heart sound present, S2 normal heart sound present, No gallops present (Cardio), No clicks present (Cardio), No murmurs present (Cardio) and No rub (Cardio) RATE: r egular rate RHYTHM: regular rhythm HEART SOUNDS: S1 normal heart sound present and S2 normal heart sound present PERIPHERAL PULSES: radial pulses present Extremity: COMMON NORMALS: no pedal edema Neuro: COMMON NORMALS: patient oriented x3 and moves all extremities S ENSORIUM/ORIENTATION: Yes oriented to person, Yes oriented to place and Yes oriented to time Data 02/01/25 03:27 02/01/25 03:27 A&P Assessment and plan 1. Unstable angina: Plan: 69 year old male presenting with chest pain unstable angina - chest pain with typical features - worsens with exertion, improves with rest, ASA, nitro - ongoing for the last one week, worsening on day of admission - mildly elevated troponin at 16, this was mildly elevated in 2020 as well - cardiology consulted in ER, now s/p cath with stent placement to distal RCA - cont. DAPT - fasting lipid panel with LDL of 103 - gentle IV fluids with plan for IV contrast scan - morphine available - antiemetics HTN - cont amlodipine, lisinopril Macular degeneration Diabetic retinopathy - cont eye drops DMII, well controlled - hold home metformin, januvia - SSI - A1c 6.1 on December 12, no need to repeat PPx: heparin Diet: - HH Disposition - post-cath care today, anticipate discharge in the AM. PDMP PDMP Reviewed: Not Reviewed Attestations 2 Medical Necessity Statement*: > 2 midnights for unstable angina, Inpatient for post-cath care today, anticipate discharge in the AM Time Spent in Patient Care: 16 - 35 minutes (>than 50% of time sp ent in counselling and/or direct pt care on unit) . Coding Level of Care Code Acute Code for [facility] Diagnoses Unstable angina I20.0
[2025-02-02 03:06] LABS: Hematocrit 34.8 % (37-53); Hemoglobin 11.00 g/dL (11.27-16.99); Mean Corpuscular HGB Conc 31.6 g/dL (30-55); Mean Corpuscular Hemoglobin 25.3 pg (27-33); Mean Corpuscular Volume 80.2 fl (82-101); Nucleated Red Blood Cells % 0 %; Platelet Count 190 10^3/cmm (157-399); Red Blood Count 4.34 10^6/uL (3.85-5.65); White Blood Count 6.67 10^3/uL (3.29-11.43)
[2025-02-02 03:31] LABS: Anion Gap 13.5 (5-19); Blood Urea Nitrogen 15 mg/dL (8-23); Calcium 9.0 mg/dL (8.5-10.5); Carbon Dioxide 24 mmol/L (22-29); Chloride 108 mmol/L (98-107); Creatinine Clr Calc Pharmacy 101.6261; Glucose 113 mg/dL (65-115); Osmolality Calculated 294 mOsm/kg (285-295); Potassium 4.5 mmol/L (3.5-5.1); Sodium 141 mmol/L (136-145)
[2025-02-02 03:38] VITALS: BP 139/76; PULSE 68; RESP 18; TEMP 36.4; O2SAT 95
[2025-02-02] MEDS: heparin 5,000 unit/mL INJ 1 mL 5000 UNIT SUBCUT (06:39)
[2025-02-02 07:34] VITALS: BP 150/86; PULSE 72; RESP 19; TEMP 36.6; O2SAT 96
--- NOTE | 2025-02-02 08:33 | P.PN_ITS ---
Subjective 2 Subjective: Patient had PCI of RCA yesterday. Doing well. No chest pain. Vitals/I&O/Wt Last Vital Signs Temp 97.9 F 02/02/25 07:34 Pulse 72 02/02/25 07:34 Resp 19 H 02/02/25 07:34 BP 150/86 02/02/25 07:34 Pulse Ox 96 02/02/25 07:34 O2 Del Method Room Air 02/02/25 03:38 02/01/25 02/02/25 02/02/25 22:59 06:59 14:59 Intake Total 120 / 745.228 1184 / 1000 Balance 120 / 633.842 4840 / 1000 Weight last 48 hrs Weight 203 lb 6.4 oz Weight 213 lb Weight 213 lb 4.8 oz Weight 220 lb Physical Exam 2 Narrative: GENERAL: Patient is alert, awake and oriented x3. [] NECK: No jugular vein distension. [] HEENT: No cyanosis. No icterus. No pallor. [] HEART: Regular S1 and S2. No murmur, rub or gallop. [] LUNGS: Clear to auscultate bilaterally. [] CENTRAL NERVOUS SYSTEM: Grossly nonfocal. [] EXTREMITIES: Lower extremities with no edema bilaterally. Data 02/02/25 02:44 02/02/25 02:44 A&P Assessment and plan 1. Unstable angina: 2. Coronary artery disease: 3. Benign essential HTN: 4. Dyslipidemia associated with type 2 diabetes mellitus: 5. Type 2 diabetes mellitus: Plan: Patient is stable from cardiac standpoint. Had PCI of RCA yesterday. Continue aspirin and Plavix. Can be discharged home from cardiac standpoint with outpatient cardiology follow up in 2 weeks PDMP PDMP Reviewed: Not Reviewed Attestations 2 Medical Necessity Statement*: Care expected to cross 2 midnights. Coding Level of Care Code Acute Code for [facility] Fwd Diagnoses Unstable angina I20.0 Coronary artery disease I25.10 Benign essential HTN I10 Dyslipidemia associated with type 2 diabetes mellitus E11.69; E78.5 Type 2 diabetes mellitus E11.9
--- NOTE | 2025-02-02 10:31 | P.DS_ITS ---
Discharge Providers Date of Admission: 01/31/25 15:29 Date of Discharge: February 02, 2025 Attending Provider at Admission: Иван Mars MD Attending Provider at Discharge: Иван Mars MD Primary Care Provider: DONNELL Preston Diagnoses at Discharge Discharge Diagnosis 1. Unstable angina: 2. Coronary artery disease: 3. Benign essential HTN: 4. Dyslipidemia associated with type 2 diabetes mellitus: 5. Type 2 diabetes mellitus without complication, without long-term current use of insulin: Reason for Visit Reason for Visit: chest pain Brief History: 69 year old male presenting with chest p ain Hospital Course Hospital Course unstable angina CAD - chest pain with typical features - worsens with exertion, improves with rest, ASA, nitro - ongoing for the last one week, worsening on day of admission - mildly elevated troponin at 16, this was mildly elevated in 2020 as well - cardiology consulted in ER, now s/p cath with stent placement to distal RCA - cont. DAPT - fasting lipid panel with LDL of 103, cont. statin. - gentle IV fluids with plan for IV contrast scan, no HANH - morphine available - antiemetics Benign essential HTN - cont amlodipine, lisinopril Macular degeneration Diabetic retinopathy - cont eye drops DMII, well controlled - hold home metformin, januvia - SSI - A1c 6.1 on December 12, no need to repeat - cont. home regimen after discharge. PPx: heparin Diet: - HH Disposition - Discharge planning for today, follow up with cardiology in 2 weeks. Physical Exam Const: COMMON NORMALS: no acute distress and patient oriented x3 GENERAL APPEARANCE: cooperative and comfortable ORIENTATION/CONSCIOUSNESS: Yes awake, Yes oriented to person, Yes oriented to place and Yes oriented to time Chest: COMMONS NORMALS: normal inspection of the chest and normal palpation of entire chest wall CHEST: Yes Symmetrical chest wall rise Resp: COMMON NORMALS: normal respiratory effort, No retractions, No use of accessory muscles and clear to auscultation bilaterally EFFORT & INSPECTION: Yes symmetric chest movement AUSCULTATION: clear to auscultation bilaterally Cardio: COMMON NORMALS: regular rate, regular rhythm, S1 normal heart sound present, S2 normal heart sound present, No gallops present (Cardio), No clicks present (Cardio), No murmurs present (Cardio) and No rub (Cardio) RATE: regular rate RHYTHM: regular rhythm HEART SOUNDS: S1 normal heart sound present and S2 normal heart sound present PERIPHERAL PULSES: radial pulses present Extremity: COMMON NORMALS: no pedal edema Neuro: COMMON NORMALS: patient oriented x3 and moves all extremities SENSOR IUM/ORIENTATION: Yes oriented to person, Yes oriented to place and Yes oriented to time Discharge Data Studies Completed and Pending Completed Studies During Hospitalization Category Date Time Status XR chest 1V portable [id number] Stat Exams 01/31/25 12:09 Completed Pending at discharge Category Date Time Status LIBRARY HELPER request for service Routine Exams 02/01/25 07:02 Taken Radiology Impressions Chest X-Ray 01/31/25 12:09 Impression: Atherosclerosis. Laboratory Results WBC 6.67 10^3/uL (3.29-11.43) 02/02/25 02:44 RBC 4.34 10^6/uL (3.85-5.65) 02/02/25 02:44 Hgb 11.00 g/dL (11.27-16.99) L 02/02/25 02:44 Hct 34.8 % (37-53) L 02/02/25 02:44 MCV 80.2 fl (82-101) L 02/02/25 02:44 MCH 25.3 pg (27-33) L 02/02/25 02:44 MCHC 31.6 g/dL (30-55) 02/02/25 02:44 RDW 14.9 % (12.1-15.1) 02/02/25 02:44 Plt Count 190 10^3/cmm (157-399) 02/02/25 02:44 MPV 10.5 fL (7.4-10.4) H 02/02/25 02:44 Neut % (Auto) 67.9 % 02/02/25 02:44 Lymph % (Auto) 18.9 % 02/02/25 02:44 [place] % (Auto) 10.6 % 02/02/25 02:44 Eos % (Auto) 2.2 % 02/02/25 02:44 Baso % (Auto) 0.3 % 02/02/25 02:44 Neut # (Auto) 4.52 10^3/uL (1.8-7.7) 02/02/25 02:44 Lymph # (Auto) 1.3 10^3/uL (0.8-4.8) 02/02/25 02:44 [place] # (Auto) 0.7 10^3/uL (0.2-0.9) 02/02/25 02:44 Eos # (Auto) 0.2 10^3/uL (0.0-0.8) 02/02/25 02:44 Baso # (Auto) 0.0 10^3/uL (0.0-0.1) 02/02/25 02:44 Nucleated RBC % (auto) 0 % 02/02/25 02:44 Nucleated RBCs # 0.0 /100WBC 02/02/25 02:44 Sodium 141 mmol/L (136-145) 02/02/25 02:44 Potassium 4.5 mmol/L (3.5-5.1) 02/02/25 02:44 Chloride 108 mmol/L (98-107) H 02/02/25 02:44 Carbon Dioxide 24 mmol/L (22-29) 02/02/25 02:44 Anion Gap 13.5 (5-19) 02/02/25 02:44 BUN 15 mg/dL (8-23) 02/02/25 02:44 Creatinine 0.7 mg/dL (0.7-1.2) 02/02/25 02:44 GFR Calculation 111.8 mL/min (90-130) 02/02/25 02:44 Glucose 113 mg/dL (65-115) 02/02/25 02:44 POC Glucose 114 mg/dL (70-110) H 02/02/25 06:18 Calculated Osmolality 294 mOsm/kg (285-295) 02/02/25 02:44 Calcium 9.0 mg/dL (8.5-10.5) 02/02/25 02:44 Total Bilirubin 0.2 mg/dL (0.15-1.2) 01/31/25 12:12 AST 21 U/L (0-40) 01/31/25 12:12 ALT 14 U/L (0-41) 01/31/25 12:12 Alkaline Phosphatase 73 U/L (40-130) 01/31/25 12:12 Troponin T Baseline 16 ng/L (0-15) H 01/31/25 12:12 Troponin T 120 Minute 19.08 ng/L (0-15) H 01/31/25 14:05 Delta Troponin T 3.08 ABS# (0-10) 01/31/25 14:05 Troponin T Hi Sens 6Hr 17.62 ng/L (0-15) H 01/31/25 17:56 Troponin T Hi Sens 6Hr Delta 1.62 ng/L (0-12) 01/31/25 17:56 Total Protein 7.6 g/dL (6.6-8.7) 01/31/25 12:12 Albumin 4.4 g/dL (3.5-5.2) 01/31/25 12:12 Globulin 3.2 g/dL (1.3-4.6) 01/31/25 12:12 Triglycerides 90 mg/dL (0-150) 02/01/25 03:27 Cholesterol 167 mg/dL (0-200) 02/01/25 03:27 LDL Cholesterol, Calc 103 mg/dL (50-129) 02/01/25 03:27 HDL Cholesterol 46 mg/dL (60-100) L 02/01/25 03:27 LDL/HDL Ratio 2.24 RATIO (0.00-3.22) 02/01/25 03:27 Cholesterol/HDL Ratio 3.63 mg/dL (1.0-5.00) 02/01/25 03:27 Vitals Last Vital Signs Temp 97.9 F 02/02/25 07:34 Pulse 72 02/02/25 07:34 Resp 19 H 02/02/25 07:34 BP 150/86 02/02/25 07:34 Pulse Ox 96 02/02/25 07:34 O2 Del Method Room Air 02/02/25 03:38 Discharge Plan Discharge Patient Disposition: Home Condition: Stable Prescriptions: New clopidogrel 75 mg Tablet 75 mg PO DAILY Qty: 30 2RF atorvastatin 40 mg Tablet 40 mg PO BEDTIME Qty: 30 2RF aspirin 81 mg Tablet,Delayed Release (Dr/Ec) 81 mg PO DAILY Qty: 30 2RF Continued (DME) Diabetic shoes with custom accommodated insoles See Rx Instructions .Route .MEDSUPPLY Qty: 1 0RF Rx Instructions: As directed lisinopril 10 mg tablet 10 mg PO DAILY Qty: 90 1RF amlodipine 5 mg tablet 5 mg PO BID Qty: 180 1RF (DME) blood-glucose meter [Blood Glucose Monitoring] Kit See Rx Instructions .ROUTE .MEDSUPPLY Qty: 1 0RF Rx Instructions: As directed; test 1 x daily and prn hypoglycemia (DME) Accu-Chek Guide test strips Strip See Rx Instructions .ROUTE .COMPLEX Qty: 100 2RF Dose Instruction: TEST BLOOD GLUCOSE ONCE DAILY AND NEEDED FOR HYPOGLYCEMIA DIRECTED *E11.9* Rx Instructions: TEST BLOOD GLUCOSE ONCE DAILY AND NEEDED FOR HYPOGLYCEMIA DIRECTED *E11.9* (DME) lancets 31 gauge misc See Rx Instructions .ROUTE .MEDSUPPLY Qty: 100 3RF Rx Instructions: As directed; to test 1 x day and prn hypoglycemia latanoprost 0.005 % drops 1 drp ophthalmic (eye) QPM mupirocin 2 % ointment 1 applic topical BID PRN (Reason: Skin Irritation) metformin 500 mg tablet extended release 24 hr 500 mg PO BID Januvia 100 mg tablet 100 mg PO .@NOON Discharge Order = DC NOW: Discharge Order (Routine); Ordered 02/02/25 Ordered By: Иван Mars Referrals: Harlan Garza M.D [Physician, Cardiology] - 7-10 days Referral Note: We have notified your physician's clinic of the need for a follow-up appointment to be scheduled. If you have not heard from them within the next 2 business days, please call them directly. Viki Hayden FNP [Primary Care Provider, Family Practice] Discharge Diet: Cardiac Discharge Activity: Resume usual activity Patient Instructions: Aspirin/Codeine (By mouth), Aspirin (By mouth), Atorvastatin (By mouth), Clopidogrel (By mouth) (Plavix), Opioid Safety, Post Angiogram Home Care Instructions, Patient Portal & Stu Instructions Discharge Attestations Time Spent in Discharge Care*: greater than 30 min Quality Metrics Clinical Quality Measures [ No reported AMI, CVA or VTE this stay] Coding Level of Care Code Acute Code for [facility] Diagnoses Unstable angina I20.0 Coronary artery disease I25.10 Benign essential HTN I10 Dyslipidemia associated with type 2 diabetes mellitus E11.69; E78.5 Type 2 diabetes mellitus without complication, without long-term current use of insulin E11.9 Diabetes mellitus ferry terminal agent insulin use: without senior care use Diabetes mellitus complication status: without complication
--- NOTE | 2025-02-02 11:02 | PC.NURSE ---
Patient discharged to home. Instruction provided by BRENDA Sheehan regarding follow up needs, new medications and site care with restrictions. Patient and spouse both verbalized complete understanding. New Rx transmitted to Ariella Almendarez. Patient taken by wheelchair to private vehicle. Patient denies pain or needs. No distress observed.
[2025-02-02 11:09] VITALS: BP 150/86; PULSE 70; RESP 19; O2SAT 96
== END 2025-02-02 11:10 | disposition home or self-care (01) | DRG 287 ==
LOC: ER 18:07 → CSU 18:20
PROVIDERS: Internal Medicine; Admitting Provider Internal Medicine; Emergency Provider Family Medicine; PCP Nurse Practitioner Family; Visit Provider Internal Medicine
PROC: 4A023N7 Measurement of Cardiac Sampling and Pressure, Left Heart, Percutaneous Approach (ICD-10-PCS; principal; 2025-02-01 09:05)
PROC: 4A023N7 Measurement of Cardiac Sampling and Pressure, Left Heart, Percutaneous Approach (ICD-10-PCS; 2025-02-01 09:05)
DX: I25.110 Atherosclerotic heart disease of native coronary artery with unstable angina pectoris (principal); I10 Essential (primary) hypertension; E13.69 Other specified diabetes mellitus with other specified complication; E13.319 Other specified diabetes mellitus with unspecified diabetic retinopathy without macular edema; Z79.84 Long term (current) use of oral hypoglycemic drugs; E78.5 Hyperlipidemia, unspecified; H35.30 Unspecified macular degeneration; Z87.891 Personal history of nicotine dependence
CPT/HCPCS: 36415; 36416; 71045; 80048; 80053; 80061; 82962; 84484; 85025; 85347; 93005; 93454; 96372; 99152; 99153; 99285; C1725; C1769; C1874; C1887; C1894; C9600; J1644; J2250; J3010; J3490; J7030; J9999; Q0163; Q9967

== ENCOUNTER 2025-02-09 00:41 | Emergency (ER) | payer MEDICARE, SELFPAY ==
[2025-02-09] VITALS (7 sets, daily range): BP systolic 138–185; BP diastolic 69–81; PULSE 71–83; RESP 20–29; TEMP 36.6; O2SAT 96–98; BMI 30.1
--- OUTSIDE RECORDS SUMMARY | 2025-02-09 00:47 | XMS_ITS | Clinical Summary ---
Author Organization [facility] Address [address] Rodas: Epic Prelude ADT RIK BLANCO [address] Care Team Providers Care Erp Technical Lead Name Role Phone Unavailable Primary Care Provider [...] Description 12/19/2024 1:30 PM CDT Office Visit [facility] [place] [address] [place] [address] Jc Murray MD Proliferative diabetic retinopathy of both eyes without macular edema associated with type 2 diabetes mellitus (CMS/HCC) (Primary Dx); Epiretinal membrane (ERM) of left eye; Lamellar macular hole, left; Pseudophakia of both eyes 12/13/2024 Telephone [facility] [place] [facility] [address] [place] [address] Provider, Abstract Medical Records (Requested [...] on file Legal Sex Male 7:14 AM YOKE [employer] Gender Identity Not on file Sexual Orientation Not on file Plan of Treatment Upcoming Encounters Date Type Department Care Team (Late st Contact Info) Description 12/20/2025 2:20 PM CDT Office Visit [facility] [place] [address] [place] [address] Jc Murray MD [address] [place] [address] Health Maintenance Due Date Last [...] edema associated with type 2 diabetes mellitus ([facility]) from Last 3 Months Results * FLUORESCEIN ANGIOGRAPHY - OU - BOTH EYES (12/19/2024 3:12 PM CDT) Narrative [facility] OPHTHALMOLOGY ORDERS - 12/19/2024 4:09 PM CDT Right Eye Mid/Late phase findings include (No neovascularization ). Choroidal neovascularization is not present. Left Eye Mid/Late phase findings include (No neovascularization ). Choroidal neovascularization is not present. Notes Left Eye First Jc Murray MD OPHTH PHOTOGRAPHY Final Result Performing Organization Address [facility] Co de Phone Number [facility] OPHTHALMOLOGY ORDERS * OCT, RETINA - OU - BOTH EYES (12/19/2024 1:35 PM CDT) Narrative [facility] [place] OPHTHALMOLOGY ORDERS - 12/19/2024 4:05 PM CDT OD: retinal thinning OS: Epiretinal membrane with lamellar hole. us Jc Murray MD OPHTH TOMOGRAPHY Final Result Performing Organization Address [facility] Co de Phone Number [facility] [place] OPHTHALMOLOGY ORDERS * EYE DROPS (12/19/2024 1:18 PM CDT) Narrative [facility] O[place]THAL[facility]OLOGY[place] - 12/19/2024 4:09 PM CDT Medications Eye Drops: 2 Drop proparacaine (OPHTHAINE) 0.5% ophthalmic solution Route: Both Eyes ND: 98875-900-41, Lot: [id number], Expiration date: 08/04/2026 1 Drop tropicamide (MYDRIACYL) 1% ophthalmic solution Route: Both Eyes NDC: 89912-028-17, Lot: [id number], Expiration date: 11/01/2025 1 Drop phenylephrine (AK-DILATE, MYDFRIN) 2.5% ophthalmic solution Route: Both Eyes ND: 03785-082-30, Lot: [id number], Expiration date: 12/02/2025 Jc Murray MD OPHTH CLINIC PROCEDURES Final R esult [facility] CLIA[facility] [id number] [address] [place] [address] from Last 3 Months Insurance [facility] PPO [facility]
--- NOTE | 2025-02-09 01:15 | XRR_ITS ---
PROCEDURE INFORMATION: Exam: XR Chest Exam date and time: 02/09/2025 1:20 AM Age: 69 years old Clinical indication: Other: Hypertension; Prior surgery; Surgery date: 3-7 days post-operative; Surgery type: Coronary stent 02/01/2025 TECHNIQUE: Imaging protocol: Radiologic exam of the chest. Views: 1 view. COMPARISON: CR XR chest 1V portable [id number] 01/31/2025 12:09 PM FINDINGS: Lungs: Few nonspecific although chronic appearing strands at the lung bases. Pleural spaces: Poor visualization of left costophrenic angle, can not exclude small infiltrate or effusion in this area. Heart/Mediastinum: Unremarkable. No cardiomegaly. Bones/joints: Mild degenerative changes of the AC joint. XR/XR chest 1V portable [id number] IMPRESSION: Poor visualization of left costophrenic angle, can not exclude small infiltrate or effusion in this area.
--- NOTE | 2025-02-09 01:16 | CTR_ITS ---
PROCEDURE INFORMATION: Exam: CT Head Without Contrast Exam date and time: 02/09/2025 1:26 AM Age: 69 years old Clinical indication: Weakness, extremity; Hypertension with bilateral lower ext weakness. Heart cath one week ago. ; Additional info: Elevated BP with new onset paresthesias TECHNIQUE: Imaging protocol: Computed tomography of the head without contrast. Radiation optimization: All CT scans at this facility use at least one of these dose optimization techniques: automated exposure control; mA and/or kV adjustment per patient size (includes targeted exams where dose is matched to clinical indication); or iterative reconstruction. COMPARISON: CT head wo con* [id number] 03/17/2021 8:29 PM RADIATION DOSE METRICS: Total DLP (mGy-cm): 1081.78 FINDINGS: Brain: Normal. No hemorrhage. Unremarkable white matter. No mass effect. Cerebral ventricles: No ventriculomegaly. Paranasal sinuses: Visualized sinuses are unremarkable. No fluid levels. Mastoid air cells: Visualized mastoid air cells are well aerated. Bones: Unremarkable. No acute fracture. Soft tissues: Unremarkable. CT/CT head wo con* [id number] IMPRESSION: No acute intracranial abnormality.
--- NOTE | 2025-02-09 01:16 | ECG_ITS ---
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
[2025-02-09] MEDS: labetalol 5 mg/mL SDV 20mL 10 MG IVP (01:19)
[2025-02-09 01:28] LABS: Glucose Urine UA Negative (Normal); Nitrate Urine Negative (Negative); Specific Gravity, Urine 1.013 (1.005-1.030)
[2025-02-09 01:29] LABS: Hematocrit 33.7 % (37-53); Hemoglobin 10.70 g/dL (11.27-16.99); Mean Corpuscular HGB Conc 31.8 g/dL (30-55); Mean Corpuscular Hemoglobin 25.2 pg (27-33); Mean Corpuscular Volume 79.3 fl (82-101); Nucleated Red Blood Cells % 0 %; Platelet Count 237 10^3/cmm (157-399); Red Blood Count 4.25 10^6/uL (3.85-5.65); White Blood Count 7.52 10^3/uL (3.29-11.43)
[2025-02-09 01:33] LABS: Add Urine Microscopic? YES
[2025-02-09 01:41] LABS: INR 0.91 (0.8-1.2); Prothrombin Time 12.90 SECONDS (12.1-14.9)
[2025-02-09 01:42] LABS: Partial Thromboplastin Time 29.2 SECONDS (23.9-36.7)
[2025-02-09 01:55] LABS: Troponin(5th) Baseline 17 ng/L (0-15)
[2025-02-09 02:02] LABS: Alanine Aminotransferase 13 U/L (0-41); Albumin Level 4.2 g/dL (3.5-5.2); Alkaline Phosphatase 76 U/L (40-130); Anion Gap 15.7 (5-19); Aspartate Amino Transferase 18 U/L (0-40); Blood Urea Nitrogen 21 mg/dL (8-23); Calcium 9.6 mg/dL (8.5-10.5); Carbon Dioxide 25 mmol/L (22-29); Chloride 102 mmol/L (98-107); Creatinine Clr Calc Pharmacy 100.9551; Globulin 3.2 g/dL (1.3-4.6); Glucose 143 mg/dL (65-115); NT Pro B Type Natriuretic Pept 166 pg/mL (0-125); Osmolality Calculated 291 mOsm/kg (285-295); Potassium 4.7 mmol/L (3.5-5.1); Sodium 138 mmol/L (136-145); Total Protein 7.4 g/dL (6.6-8.7)
[2025-02-09 03:11] LABS: Troponin 5 2HR 15.74 ng/L (0-15)
[2025-02-09 03:12] LABS: Troponin 5 2HR Delta -1.26 ABS# (0-10)
--- NOTE | 2025-02-09 03:31 | ED_ITS ---
HPI - Recheck/Abnormal Lab/Rx 2 General: Chief Complaint: Recheck/Abnormal Lab/Rx Stated Complaint: tingly feet, Hot and cold feeling Time Seen by Provider: 02/09/25 00:43 History of Present Illness: And with elevated blood pressure, bilateral feet tingling and weakness and a slight cough. Patient has stent placed partly 1 week ago. Takes lisinopril and amlodipine 5 mg. States he has been taking these without missing any doses. Denies any facial droop or weakness preserved just the bilateral feet tingling. Related Data Home Medications ?Medication ?Instructions ?Recorded ?Confirmed latanoprost 0.005 % eye drops 1 drp ophthalmic (eye) Q PM 01/31/25 02/04/25 metformin 500 mg tablet,extended 500 mg PO BID 5 02/04/25 release 24 hr mupirocin 2 % topical ointment 1 applic topical BID NM N Skin 01/31/25 02/04/25 Irritation sitagliptin phosphate 100 mg 100 mg PO .@NOON 01/31/25 02/04/25 tablet (Januvia) Previous Rx's ?Medication ?Instructions ?Recorded blood-glucose meter (Blood Glucose #1 ea 05/07/22 Monitoring kit) blood sugar diagnostic (Accu-Chek #100 ea 01/02/24 Guide test strips) lancets 31 gauge #100 ea 09/21/24 amlodipine 5 mg tablet 5 mg PO BID #180 tabs lisinopril 10 mg tablet 10 mg PO DAILY #90 tabs 12/02 07/28 Diabetic shoes with custom #1 ea 01/28/25 accommodated insoles aspirin 81 mg tablet,delayed 81 mg PO DAILY #30 tabs 0 02/02/25 release atorvastatin 40 mg tablet 40 mg PO BEDTIME #30 tabs clopidogrel 75 mg tablet 75 mg PO DAILY #30 tabs 08/28 Allergies Allergy/AdvReac Type Severity Reaction Status Date / Time No Known Allergies Allergy Verified 02/08/25 08:13 Review of Systems 2 General: Reports: 10 or more systems reviewed and unremarkable except in HPI and below PFSH ED 2 PFSH: Medical History (Updated 02/09/25 @ 03:35 by Ruben Scales MD) Melanoma of nose Ankylosing spondylitis High risk medication use Seropositive rheumatoid arthritis of multiple sites Benign essential HTN Macular degeneration Smoking quit in 1993, smoked for 30 years Dyslipidemia associated with type 2 diabetes mellitus Stable angina Type 2 diabetes mellitus Surgical History H/O eye surgery History of foot surgery right foot 2023 Status post colonoscopy (11/18/21) Previous back surgery Family History Other Cancer Diabetes Hypertension Lung disease Rheumatoid arthritis Denies family history of Lupus Chronic kidney disease (CKD) Family history of premature coronary artery disease Stroke Social History Smoking and tobacco/nicotine status: former use of tobacco/nicotine Quit status (tobacco/nicotine): has quit using Year quit tobacco: 2001 Second hand smoke exposure: No Alcohol intake: never Substance/Drug Use: never Caregiver/support person: Yes (spouse) Lives independently: Yes Household members: spouse Housing: House Marital status: Current occupational status: employed Current gender identity: Male Physical Exam 2 Const: COMMON NORMALS: no acute distress, average body habitus, patient oriented x3, healthy appearing, alert and well nourished GENERAL APPEARANCE: well kempt and well developed HENMT: COMMON NORMALS: normocephalic, atraumatic, external ears normal and moist oral mucous membranes HEAD & SCALP: normocephalic and atraumatic E XTERNAL EAR: Yes external ears normal Eye: COMMON NORMALS: Equal, round and reactive pupils present, EOMs intact bilaterally and conjunctivae normal CONJUNCTIVA: Yes conjunctivae normal P UPIL: Yes Equal, round and reactive pupils present Neck/C-Spine: COMMON NORMALS: full ROM, no lymphadenopathy and supple Chest: CHEST: Yes Symmetrical chest wall rise and No Surgical scars present (Chest) Resp: COMMON NORMALS: normal respiratory effort, No retractions, No use of accessory muscles and clear to auscultation bilaterally AUSCULTATION: clear to auscultation bilaterally Cardio: COMMON NORMALS: regular rate, regular rhythm, S1 normal heart sound present, S2 normal heart sound present, No gallops present (Cardio), No clicks present (Cardio), No murmurs present (Cardio) and No rub (Cardio) RATE: r egular rate RHYTHM: regular rhythm HEART SOUNDS: S1 normal heart sound present, S2 normal heart sound present and no murmurs PERIPHERAL PULSES: o ther (Radial pulses 2+ and symmetric) GI: COMMON NORMALS: Soft to palpation, non-tender and no masses INSPECTION: No abdominal distension PALPATION: Yes Soft to palpation, No Guarding due to palpation present (GI) and No Rebound tenderness present : COMMON NORMALS: Yes no CVA tenderness BLADDER/KIDNEY EXAM: Yes no CVA tenderness Back/Pelvis: COMMON NORMALS: no CVA tenderness Extremity: COMMON NORMALS: normal to inspection, full ROM, capillary refill normal and no clubbing, cyanosis or edema Neuro: COMMON NORMALS: patient oriented x3 SENSORIUM/ORIENTATION: Yes alert Psych: APPEARANCE: Yes well kempt Skin: COMMON NORMALS: no rashes or lesions noted, no wounds, turgor normal and no jaundice GENERAL SKIN EXAM: no rashes or lesions noted and turgor normal Course 2 Reevaluation(s): Reevaluation #1: Patient reports all symptoms are improved. Time: 03:33 Vital Signs: Vital signs: Vital Signs Temperature 98 F 02/09/25 00:54 Pulse Rate 71 02/09/25 02:00 Respiratory Rate 22 H 02/09/25 02:00 Blood Pressure 138/69 02/09/25 02:00 Pulse Oximetry 98 02/09/25 02:00 MDM - Recheck/Abnormal Lab/Rx Medical Decision Making Patient with elevated blood pressure and a feeling of tingling in his feet may be a little bit of ulnar sensation globally per patient. Describes no chest pain to me. Just felt a little bit off. Initial blood pressure here was 185/81. After single dose labetalol came down to 138/69. Given the alteration in sensation a CT of the head was done which was personally reviewed and showed no acute abnormality, radiology read concurred. Patient had a chest x-ray was done was also unremarkable on my read. Radiology reports of possible small infiltrate in the left costophrenic angle. White count is normal. EKG personally reviewed and shows sinus rhythm rate of 75 with a QTc of 412 no axis change, no ST elevations or depressions. 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 Recheck his blood pressure later this afternoon. Medical Records I reviewed the patient's medical records. Lab Data I reviewed the patient's lab results. 02/09/25 01:07 02/09/25 01:07 Radiology Impressions Chest X-Ray 02/09/25 01:15 IMPRESSION: Poor visualization of left costophrenic angle, can not exclude small infiltrate or effusion in this area. Head CT 02/09/25 01:16 IMPRESSION: No acute intracranial abnormality. Laboratory Results WBC 7.52 10^3/uL (3.29-11.43) 02/09/25 01:07 RBC 4.25 10^6/uL (3.85-5.65) 02/09/25 01:07 Hgb 10.70 g/dL (11.27-16.99) L 02/09/25 01:07 Hct 33.7 % (37-53) L 02/09/25 01:07 MCV 79.3 fl (82-101) L 02/09/25 01:07 MCH 25.2 pg (27-33) L 02/09/25 01:07 MCHC 31.8 g/dL (30-55) 02/09/25 01:07 RDW 14.6 % (12.1-15.1) 02/09/25 01:07 Plt Count 237 10^3/cmm (157-399) 02/09/25 01:07 MPV 9.9 fL (7.4-10.4) 02/09/25 01:07 Neut % (Auto) 69.4 % 02/09/25 01:07 Lymph % (Auto) 18.2 % 02/09/25 01:07 Leake % (Auto) 10.0 % 02/09/25 01:07 Eos % (Auto) 1.6 % 02/09/25 01:07 Baso % (Auto) 0.5 % 02/09/25 01:07 Neut # (Auto) 5.22 10^3/uL (1.8-7.7) 02/09/25 01:07 Lymph # (Auto) 1.4 10^3/uL (0.8-4.8) 02/09/25 01:07 Leake # (Auto) 0.8 10^3/uL (0.2-0.9) 02/09/25 01:07 Eos # (Auto) 0.1 10^3/uL (0.0-0.8) 02/09/25 01:07 Baso # (Auto) 0.0 10^3/uL (0.0-0.1) 02/09/25 01:07 Nucleated RBC % (auto) 0 % 02/09/25 01:07 Nucleated RBCs # 0.0 /100WBC 02/09/25 01:07 PT 12.90 SECONDS (12.1-14.9) 02/09/25 01:07 INR 0.91 (0.8-1.2) 02/09/25 01:07 APTT 29.2 SECONDS (23.9-36.7) 02/09/25 01:07 Sodium 138 mmol/L (136-145) 02/09/25 01:07 Potassium 4.7 mmol/L (3.5-5.1) 02/09/25 01:07 Chloride 102 mmol/L (98-107) 02/09/25 01:07 Carbon Dioxide 25 mmol/L (22-29) 02/09/25 01:07 Anion Gap 15.7 (5-19) 02/09/25 01:07 BUN 21 mg/dL (8-23) 02/09/25 01:07 Creatinine 0.8 mg/dL (0.7-1.2) 02/09/25 01:07 GFR Calculation 95.8 mL/min (90-130) 02/09/25 01:07 Glucose 143 mg/dL (65-115) H 02/09/25 01:07 Calculated Osmolality 291 mOsm/kg (285-295) 02/09/25 01:07 Calcium 9.6 mg/dL (8.5-10.5) 02/09/25 01:07 Total Bilirubin 0.3 mg/dL (0.15-1.2) 02/09/25 01:07 AST 18 U/L (0-40) 02/09/25 01:07 ALT 13 U/L (0-41) 02/09/25 01:07 Alkaline Phosphatase 76 U/L (40-130) 02/09/25 01:07 Troponin T Baseline 17 ng/L (0-15) H 02/09/25 01:07 Troponin T 120 Minute 15.74 ng/L (0-15) H 02/09/25 02:45 Delta Troponin T -1.26 ABS# (0-10) L 02/09/25 02:45 NT-Pro-B Natriuret Pep 166 pg/mL (0-125) H 02/09/25 01:07 Total Protein 7.4 g/dL (6.6-8.7) 02/09/25 01:07 Albumin 4.2 g/dL (3.5-5.2) 02/09/25 01:07 Globulin 3.2 g/dL (1.3-4.6) 02/09/25 01:07 Urine Color Yellow (Yellow) 02/09/25 00:49 Urine Appearance Clear (CLEAR) 02/09/25 00:49 Urine pH 5.5 (5-7) 02/09/25 00:49 Ur Specific [place] 1.013 (1.005-1.030) 02/09/25 00:49 Urine Protein Negative (Negative) 02/09/25 00:49 Urine Glucose (UA) Negative (Normal) 02/09/25 00:49 Urine Ketones Negative (Negative) 02/09/25 00:49 Urine Blood Negative (Negative) 02/09/25 00:49 Urine Nitrate Negative (Negative) 02/09/25 00:49 Urine Bilirubin Negative (Negative) 02/09/25 00:49 Urine Urobilinogen 1.0 mg/dL (Negative) 02/09/25 00:49 Ur Leukocyte Esterase Negative (Negative) 02/09/25 00:49 Urine RBC 0-2 /hpf (0-2) 02/09/25 00:49 Urine WBC 0-5 /hpf (0-5) 02/09/25 00:49 Ur Squamous Epith Cells 0-5 /hpf (0-5) 02/09/25 00:49 Amorphous Sediment Not Reportable 02/09/25 00:49 Urine Bacteria None seen /hpf (NONE) 02/09/25 00:49 Hyaline Casts 0.40 /lpf 02/09/25 00:49 All radiology interpretation(s) finalized by discharge Discharge Plan Discharge Clinical Impression: Hypertensive urgency, Paresthesias Condition: Stable Prescriptions: No Action (DME) Diabetic shoes with custom accommodated insoles See Rx Instructions .Route .MEDSUPPLY Qty: 1 0RF Rx Instructions: As directed lisinopril 10 mg tablet 10 mg PO DAILY Qty: 90 1RF amlodipine 5 mg tablet 5 mg PO BID Qty: 180 1RF (DME) blood-glucose meter [Blood Glucose Monitoring] Kit See Rx Instructions .ROUTE .MEDSUPPLY Qty: 1 0RF Rx Instructions: As directed; test 1 x daily and prn hypoglycemia (DME) Accu-Chek Guide test strips Strip See Rx Instructions .ROUTE .COMPLEX Qty: 100 2RF Dose Instruction: TEST BLOOD GLUCOSE ONCE DAILY AND NEEDED FOR HYPOGLYCEMIA DIRECTED *E11.9* Rx Instructions: TEST BLOOD GLUCOSE ONCE DAILY AND NEEDED FOR HYPOGLYCEMIA DIRECTED *E11.9* (DME) lancets 31 gauge misc See Rx Instructions .ROUTE .MEDSUPPLY Qty: 100 3RF Rx Instructions: As directed; to test 1 x day and prn hypoglycemia latanoprost 0.005 % drops 1 drp ophthalmic (eye) QPM mupirocin 2 % ointment 1 applic topical BID PRN (Reason: Skin Irritation) metformin 500 mg tablet extended release 24 hr 500 mg PO BID Januvia 100 mg tablet 100 mg PO .@NOON atorvastatin 40 mg Tablet 40 mg PO BEDTIME Qty: 30 2RF clopidogrel 75 mg Tablet 75 mg PO DAILY Qty: 30 2RF aspirin 81 mg Tablet,Delayed Release (Dr/Ec) 81 mg PO DAILY Qty: 30 2RF Discharge Orders: Discharge ED (Routine); Ordered 02/09/25 Ordered By: Ruben Scales Referrals: Viki Hayden FNP [Primary Care Provider, Family Practice] Discharge Diet: Low Salt Discharge Activity: Increase activity as tolerated Patient Instructions: Hypertension (ED), Patient Portal & Stu Instructions Print Language: Barbadian Coding Level of Care Code ED Tube Station Attendant for Yovanny Torres
== END 2025-02-09 04:00 | disposition home or self-care (01) ==
PROVIDERS: Emergency Provider Emergency Medicine; PCP Nurse Practitioner Family
DX: I16.0 Hypertensive urgency (principal); R20.2 Paresthesia of skin; Z79.84 Long term (current) use of oral hypoglycemic drugs; Z79.02 Long term (current) use of antithrombotics/antiplatelets; Z79.82 Long term (current) use of aspirin; Z87.891 Personal history of nicotine dependence; E78.5 Hyperlipidemia, unspecified; E11.9 Type 2 diabetes mellitus without complications; I10 Essential (primary) hypertension; Z85.820 Personal history of malignant melanoma of skin
CPT/HCPCS: 70450; 71045; 80053; 81001; 83880; 84484; 85025; 85610; 85730; 93005; 96374; 99285; J3490

== ENCOUNTER → 2025-02-14 14:20 | Outpatient (BNVA) | payer MEDICARE, SELFPAY | PROVIDERS: PCP Nurse Practitioner Family; Visit Provider Nurse Practitioner Family | DX: I25.10 Atherosclerotic heart disease of native coronary artery without angina pectoris (principal); Z09 Encounter for follow-up examination after completed treatment for conditions other than malignant neoplasm; R07.9 Chest pain, unspecified; I10 Essential (primary) hypertension; Z79.02 Long term (current) use of antithrombotics/antiplatelets; Z79.82 Long term (current) use of aspirin; Z95.5 Presence of coronary angioplasty implant and graft; Z87.891 Personal history of nicotine dependence | CPT/HCPCS: 36415; 80053; 82550; 99214 ==

== ENCOUNTER 2025-03-18 11:40 | Outpatient (CLI) | payer MEDICARE, MEDICAID, SELFPAY ==
--- NOTE | 2025-03-18 12:00 | USCV_ITS ---
Camron Zuñiga Age: 69 Gender: M : 1955 Exam Date: 03/18/2025 12:34 Ordering Phys: Katherine Valente NP Technologist: Exam Location: [facility] [place] Indication: cp sob BP: 124 / 77 HR: 86 Rhythm: Sinus Technical Quality: Adequate MEASUREMENTS (Male / Female) Normal Values 2D ECHO LV Diastolic Diameter PLAX 4.4 cm 4.2 - 5.9 / 3.9 - 5.3 cm IVS Diastolic Thickness 1.4 cm 0.6 - 1.0 / 0.6 - 0.9 cm IVS Systolic Thickness 2.1 cm LVPW Diastolic Thickness 1.2 cm 0.6 - 1.0 / 0.6 - 0.9 cm LVPW Systolic Thickness 1.6 cm LVOT Diameter 1.9 cm LV Ejection Fraction 2D Teich 65.6 % LV Ejection Fraction MOD 4C 55.9 % LV Ejection Fraction MOD 2C 54.4 % LV Ejection Fraction 2C AL 55.6 % LA Diameter 3.5 cm RA Systolic Volume 4C AL 34.0 ml RA Systolic Volume 4C MOD 32.3 ml LA Sys Volume AL 48.7 cm cubed LA Sys Volume Index AL 22.2 cm cubed/m squared Aorta at Sinotubular Diameter 3.5 cm M-MODE LA Ao Ratio MM 1.0 MV E Point Septal Separation 1.9 cm AV Cusp Separation MM 1.7 cm DOPPLER AV Peak Velocity 129.0 cm/s LVOT Peak Velocity 109.0 cm/s AV Area Cont Eq vti 2.7 cm squared AV Area Cont Eq pk 2.4 cm squared MV Peak Velocity 130.0 cm/s MV Area PHT 3.8 cm squared Mitral E to A Ratio 0.6 TV Peak Velocity 168.0 cm/s TR Peak Velocity 174.0 cm/s TR Peak Gradient 12.1 mmHg TV Peak E Velocity 114.0 cm/s PV Peak Velocity 107.0 cm/s FINDINGS Left Ventricle Normal left ventricular size and systolic function, EF 55%. Mild left ventricular hypertrophy. No regional wall motion abnormalities. Grade I/IV diastolic dysfunction (abnormal relaxation filling pattern), normal to mildly elevated filling pressures. Right Ventricle The right ventricle is normal in size and function. Right Atrium The right atrium is normal in size. Left Atrium The left atrium is normal in size. Mitral Valve No gross abnormalities noted Aortic Valve Thickened aortic valve. Tricuspid Valve Trace tricuspid valve regurgitation. Pulmonic Valve Pulmonic valve not well visualized. Pericardium Normal pericardium without effusion. Aorta Normal ascending aorta dimension. IVC Inferior vena cava not visualized. CONCLUSIONS Normal left ventricular size and systolic function, EF 55%. Mild left ventricular hypertrophy. No regional wall motion abnormalities. Grade I/IV diastolic dysfunction (abnormal relaxation filling pattern), normal to mildly elevated filling pressures. Thickened aortic valve. Trace tricuspid valve regurgitation. Estimated pulmonary artery peak systolic pressure within normal limits There is no pericardial effusion. There are no intracardiac masses. Compared to the study from 08/30/2019, there may not be a significant change Dr Cristo Cook MD FACC (Electronically Signed) Final Date: 21 March 2025 22:13 S
== END 2025-03-18 11:41 | disposition home or self-care (01) ==
LOC: RAD 11:42
PROVIDERS: PCP Nurse Practitioner Family; Visit Provider Nurse Practitioner Family
DX: R07.9 Chest pain, unspecified (principal); R06.02 Shortness of breath; I25.10 Atherosclerotic heart disease of native coronary artery without angina pectoris; I51.89 Other ill-defined heart diseases; I35.8 Other nonrheumatic aortic valve disorders; I36.1 Nonrheumatic tricuspid (valve) insufficiency
CPT/HCPCS: 93306

== ENCOUNTER → 2025-04-29 10:40 | Outpatient (BNVA) | payer MEDICARE, MEDICAID, SELFPAY | PROVIDERS: PCP Nurse Practitioner Family; Visit Provider Podiatrist Foot & Ankle Surgery | DX: E11.8 Type 2 diabetes mellitus with unspecified complications (principal); E11.42 Type 2 diabetes mellitus with diabetic polyneuropathy; Z87.39 Personal history of other diseases of the musculoskeletal system and connective tissue; L60.3 Nail dystrophy; M21.41 Flat foot [pes planus] (acquired), right foot; M21.42 Flat foot [pes planus] (acquired), left foot; Z79.84 Long term (current) use of oral hypoglycemic drugs | CPT/HCPCS: 99213 ==

== ENCOUNTER → 2025-06-05 13:30 | Outpatient (BNVA) | payer MEDICARE, MEDICAID, SELFPAY | PROVIDERS: PCP Nurse Practitioner Family; Visit Provider Internal Medicine | DX: I25.10 Atherosclerotic heart disease of native coronary artery without angina pectoris (principal); I10 Essential (primary) hypertension; E78.5 Hyperlipidemia, unspecified; E11.9 Type 2 diabetes mellitus without complications; Z79.84 Long term (current) use of oral hypoglycemic drugs; Z87.891 Personal history of nicotine dependence | CPT/HCPCS: 99214 ==

== ENCOUNTER → 2025-06-18 10:40 | Outpatient (BNVA) | payer MEDICARE, MEDICAID, SELFPAY | PROVIDERS: PCP Nurse Practitioner Family; Visit Provider Nurse Practitioner Family | DX: M79.10 Myalgia, unspecified site (principal); E11.69 Type 2 diabetes mellitus with other specified complication; E78.5 Hyperlipidemia, unspecified | CPT/HCPCS: 80053; 80061; 82043; 82306; 82607; 83036; 84443; 85025 ==